=== PATIENT | male | born 1955 | race Caucasian/White ===

== ENCOUNTER 2024-06-18 13:50 | Outpatient (AMB) | payer MEDICARE, SELFPAY ==
--- NOTE | 2024-06-18 14:33 | AM.OFFWIN_ITS ---
Intake Vital Signs 06/18/24 14:38 Height 5 ft 7 in Weight 182 lb BMI 28.5 BP 140/90 H Blood Pressure Location Lt brachial Position Sitting Pulse Oximetry (%) 91 L Oxygen Delivery Method Room Air Intake Visit Reasons: [employer] rash on both arms & chest Intake Note: Patient here for rash on arms and chest that has been present for about 2-3 weeks. Patient Tobacco Use Status: Former Tobacco user Allergies No Known Allergies Allergy (Verified 06/18/24 14:38) Do you need a note to return to daycare/school/sports/work: No HPI HPI Comments History of Present Illness Details This is a 69-year-old male who presented to the walk-in clinic complaining of a pruritic rash to his chest and arms. Patient states this started approximately 2 or 3 weeks ago. He denies any fevers or chills. He denies any chest pain or shortness of breath. He denies any abdominal pain or nausea/vomiting / diarrhea. He reports feeling otherwise well at his baseline. Review of Systems Const All systems reviewed & are unremarkable except as noted in HPI and below Reports no additional complaints Eyes Reports no additional complaints ENT Reports no additional complaints Card Reports no additional complaints Resp Reports no additional complaints GI Reports no additional complaints Reports no additional complaints Musc Reports no additional complaints Skin/Breast Reports system reviewed and no additional complaints, except as documented Neuro Reports no additional complaints Psych Reports no additional complaints Endo Reports no additional complaints Luis/Lymph Reports no additional complaints Aller/Immun Reports no additional complaints Physical Exam Const Other: Vital signs reviewed. Constitutional: Non-toxic appearing. No acute distress. Well-developed and well-nourished. HEENT: Normocephalic and atraumatic. Skin: There are scattered small erythematous excoriated papules throughout his chest and bilateral arms. There is superimposed erythema to bilateral forearms and antecubital fossae with serous weeping that is hot to the touch. Neck: Full and painless range of motion. No cervical lymphadenopathy. Cardio: Regular rate and rhythm. No murmurs, gallops, or rubs. No lower ext remity edema. No JVD. Pulmonary: No respiratory distress. No accessory muscle usage. Clear to auscultation bilaterally without wheezing, crackles, or rhonchi. Gastrointestinal: Soft, nontender, and nondistended in all 4 quadrants. Musculoskeletal: Normal range of motion in joints throughout the body. No deformity or other signs of injury. Neuro: Alert and oriented x4. Cranial nerves 2-12 grossly intact. No focal deficits appreciated. Psych: Normal mood and affect. Assessment & Plan Assessment & Plan (1) Scabies: Code(s): B86 - Scabies (2) Cellulitis of arm: Code(s): L03.119 - Cellulitis of unspecified part of limb Qualifiers: Laterality: unspecified laterality Qualified Code(s): L03.119 - Cellulitis of unspecified part of limb Plan This is a 69-year-old male who presented to the walk-in clinic complaining of a pruritic rash to his chest and arms. On physical examination, patient has scattered small erythematous excoriated papules throughout his chest and bilateral arms with superimposed erythema and drainage of bilateral forearms and antecubital fossae. History and physical most consistent with scabies with superimposed cellulitis of bilateral arms. Patient was given a prescription for permethrin cream with instructions to apply to his entire body, leave on for 8- 14 hours with prior to showering, and applying a 2nd treatment 2 weeks after the 1st treatment. Patient was also given a prescription for p.o. cephalexin 500 mg 4 times daily x7 days to treat superimposed cellulitis. He was also given p.o. hydroxyzine 25 mg 3 times daily as needed for itching. Patient was given instructions to wash his clothes and bed sheets in hot water. He was advised to follow-up here if his symptoms were to persist or worsen. Patient verbalizes understanding and he is in agreement with the plan. Medications: New permethrin 5% Apply to all areas of the body from the neck to soles of feet; leave on for 8 to 14 hours before removing by washing (shower or bath). Apply second treatment 14 days after first treatment. 1 appl topical Q14D 60 grams 0RF cephalexin 500 mg PO QID 28 caps 0RF hydroxyzine HCl 25 mg PO TID PRN 14 tabs 0RF itching Coding Level of Care Code New Pt Level 3 (13077) Diagnoses Scabies B86 Cellulitis of upper extremity, unspecified laterality L03.119 Laterality: unspecified laterality
[2024-06-18 14:38] VITALS: BP 140/90; O2SAT 91; BMI 28.5
== END 2024-06-18 15:44 | disposition home or self-care (01) ==
PROVIDERS: Visit Provider Physician Assistant Medical
DX: B86 Scabies (principal); L03.119 Cellulitis of unspecified part of limb

== ENCOUNTER → 2024-06-18 13:50 | Outpatient (BNVA) | payer MEDICARE, SELFPAY | PROVIDERS: Visit Provider Physician Assistant Medical | DX: L03.113 Cellulitis of right upper limb (principal); L03.114 Cellulitis of left upper limb | CPT/HCPCS: 99202 ==

== ENCOUNTER 2024-11-22 12:55 | Outpatient (AMB) | payer MEDICARE, SELFPAY ==
--- OUTSIDE RECORDS SUMMARY | 2024-11-22 13:13 | XMS_ITS | Encounter Summary ---
Author Organization [employer] [facility] Address [address] [place] [address] [address] [place] [address] Care Team Providers Care Senior Specialist Name Role Phone Unavailable Primary Care Provider Unavailabl e Encounter Details Date Type Department Care Team (Latest Contact Info) Description 09/18/[address] [facility] CONVERSIONS Dental, Provider, DDS Social History Tobacco Use Types Packs/Day Years Used Date Smoking Tobacco: Never Assessed Sex and Gender Information Value Date Recorded Sex Assigned at Male 05/13/2022 10:25 AM EDT Legal Sex Male 10:25 AM EDT Gender Identity Male 05/13/2022 10:25 AM EDT Sexual Orientation Straight 05/13/2022 10 :25 AM EDT documented as of this encounter Plan of Treatment Not on file documented as of this encounter Visit Diagnoses Not on filedocumented in this encounter
--- OUTSIDE RECORDS SUMMARY | 2024-11-22 13:13 | XMS_ITS | Clinical Summary ---
Author Organization [facility] Address [address] [place] [address] Phone Care Team Providers Care Retirement Officer Name Role Phone Rivka Nguyen MD Primary Care Provider [phone] Allergies Active Allergy Reactions Criticality Noted Date Comments Cat Dander Wheezing 08/09/2013 Allergy to cat dander States all ??Animal dander cats are the worst House Dust Wheezing Medium 08/09/2011 House Dust Mite Unknown 06/20/2024 Mite Extract Wheezing Medium 08/09/2011 Other Reaction(s): ASTHMA Pollen Extracts Unknown 12/21/2012 pollen Sertraline Diarrhea,Unknown 09/16/2012 Other Reaction(s): PER PRE-OP ORDERS Medications isosorbide mononitrate (IMDUR) 120 mg 24 hr tablet TAKE 1 TABLET BY MOUTH EVERY DAY 90 tablet 3 05/20/20 24 Active primidone (MYSOLINE) 50 mg tablet Take 1 tablet (50 mg total) by mouth 2 (two) times a day. 04/17/20 24 Active propranolol LA (INDERAL LA) 80 mg 24 hr capsule Si cap PO QD PRN tremors 04/17/20 24 Active Tiadylt ER 240 mg 24 hr capsule Take 1 capsule (240 mg total) by mouth 1 (one) time each day. 05/13/20 24 Active zolpidem (AMBIEN) 10 mg tablet Take 1 tablet (10 mg total) by mouth at bedtime as needed for sleep. 02/23/20 24 Active baclofen (LIORESAL) 10 mg tablet Take 1 tablet (10 mg total) by mouth 3 (three) times a day. 05/03/20 24 Active nitroglycerin (NITROSTAT) 0.[address] 1 tablet (0.4 mg total) under the tongue every 5 (five) minutes if needed for chest pain. 04/28/20 24 Active aspirin 81 mg EC tablet Take 1 tablet (81 mg total) by mouth 1 (one) time each day. Active fluticasone propionate (FLONASE) 50 mcg/actuation nasal spray Administer 1 spray into each nostril every 12 (twelve) hours. Sig - Route: 1 [place] by Nasal route daily. - Nasal Active lancets (ONETOUCH DELICA PLUS LANCET MISC) Sig - Route: Apply 1 Each topically 2 times daily. Active glucose blood test strip Sig: USE TO TEST BLOOD SUGAR TWICE DAILY. Active triamcinolone (KENALOG) 0.1 % cream Apply topically 2 (two) times a day. 30 g 06/24/20 24 025 Active albuterol HFA (PROAIR HFA ; PROVENTIL HFA ; VENTOLIN HFA) 90 mcg/actuation inhaler Inhale 2 puffs by mouth every 4 (four) hours if needed for wheezing or shortness of breath ((EMERGENCY USE ONLY).). 8.5 g 1 06/25/20 24 Active losartan (COZAAR) 25 mg tablet TAKE 1 TABLET BY MOUTH EVERY DAY 90 tablet 3 08/16/19 25 Active rosuvastatin (CRESTOR) 10 mg tablet TAKE 1 TABLET BY MOUTH EVERY DAY 90 tablet 1 08/18/19 25 Active omeprazole (PriLOSEC) [address] capsule TAKE 1 CAPSULE BY MOUTH EVERY DAY 90 capsule 1 08/18/19 25 Active Wixela Inhub 250-50 mcg/dose diskus inhaler INHALE 1 PUFF BY MOUTH 2 (TWO) TIMES A DAY 180 each 08/23/19 25 Active dulaglutide (TRULICITY) 4.5 mg/0.5 mL pen injector injection Inject 0.5 mL (4.5 mg total) under the skin every 7 (seven) days. 6 mL 1 08/26/19 25 Active polyethylene glycol (Golytely) 236-22.74-6.74 -5.86 gram solution Take 4L by mouth once for one dose. May substitue any PEG. Starting at 6PM the night before your procedure drink 1 8oz glasses at your own pace until you complete half of the gallon. Finish 2nd half of the gallon 5 hours before your procedure. 4000 mL 09/10/19 25 Active bisacodyL (DULCOLAX) 5 mg EC tablet Take 2 tablets by mouth right before beginning bowel prep. See instructions provided by the office 2 tablet 09/10/19 25 Active metFORMIN (FORTAMET) 1,000 mg 24 hr tablet Take 1 tablet (1,000 mg total) by mouth 2 (two) times a day with meals. 180 tablet 09/26/19 25 Active hydrOXYzine pamoate (VISTARIL) 25 mg capsule Take 1 capsule (25 mg total) by mouth 3 (three) times a day if needed for itching. 270 capsule 10/12/19 25 Active Jardiance 25 mg tablet TAKE 1 TABLET BY MOUTH EVERY DAY 90 tablet 1 11/02/19 25 Active Jardiance 25 mg tablet Take 1 tablet (25 mg total) by mouth 1 (one) time each day. 05/07/20 24 025 Discontinued Active Problems Problem Noted Date Diagnosed Date Lumbar radiculitis 08/26/2024 Overview (08/26/2024): Dr. Ty SCC (squamous cell carcinoma), arm 04/05/2024 Overview (05/24/2024): 04/06 Stefano ulcer, chronic 09/09/2022 Large hiatal hernia 09/09/2022 Long-segment Grewal's esophagus 09/09/2022 Tubular adenoma of colon 09/09/2022 COVID-19 virus infection 07/26/2021 Overview (05/24/2024): 1.7.22 DM (diabetes mellitus), type 2 with renal complications (CMS/HCC V24, CMS/HCC V28) 04/15/2020 Microalbuminuria 04/15/2020 History of basal cell carcinoma (BCC) of skin Overview (05/24/2024): 12/30left cheek Porokeratosis 09/17/2018 Overview (05/24/2024): Porokeratosis 09/29 right calf (excoriated) Diabetic autonomic neuropath y associated with type 2 diabetes mellitus ([facility] V24, [facility] V28) 09/08/2015 Lumbar spinal stenosis 10/05/2014 Type 2 diabetes mellitus wit h diabetic cataract ([facility] V24, [facility] V28) 10/05/2014 Iron deficiency anemia 11/09/2013 CAD (coronary artery disease) 04/22/2013 Overview (05/24/2024): cardiac cath February 2013 revealing 70% proximal RCA, Mid RCA 100% stenosis with collaterals from distal circumflex to RPDA and 75% first OM stenosis, normal EF. Managed medically as OM too small for PCI. exercise stress test 2015, exercised to 7 MET workload, 85% of the maximum predicted heart rate, nuclear imaging revealing small in size severe in intensity defect in the mid to basal inferior wall that was fixed unchanged from prior nuclear imaging in 2012. Last Assessment & Plan: Patient Denies any anginal or congestive symptoms. He will continue his current treatment plan with calcium channel maría, long-acting nitrates, aspirin, statin. He is encouraged to increase his exercise for general cardiovascular health. Assessment & Plan (08/19/2024 3:07 PM EST): Patient denies any anginal symptoms or symptoms reminiscent to those prior to his cardiac catheterization. He will continue on aspirin, isosorbide, and statin. Instructed to call 911 or go to the emergency room should the patient begin to experience chest pain or pressure lasting greater than 10 minutes does not resolve with rest. Orders: Transthoracic echocardiogram (TTE) complete with PRN contrast, bubble, strain, and 3D order panel; Future perflutren lipid microsphere (DEFINITY) 1.3 mL in sodium chloride 0.9% 8.7 mL injection Familial tremor 06/10/2012 Asthma 03/05/2012 DM (diabetes mellitus), type 2 with peripheral vascular complications ([facility] V24, [facility] V28) 03/05/2012 Erectile dysfunction 03/05/2012 GERD (gastroesophageal reflux disease) 2 HTN (hypertension) 03/05/2012 Assessment & Plan (08/19/2024 3:07 PM EST): Acceptable during today's exam with a reading of 130/64. I have made no changes to his antihypertensive medications. He will continue on his current dose of losartan. Educated on the importance of diet lifestyle to help further assist in reducing blood pressure. The patient was encouraged to follow low-salt low-fat diet, make purposeful strides towards weight loss, and engage in routine aerobic exercise as tolerated. Hyperlipidemia 03/05/2012 Assessment & Plan (08/19/2024 3:07 PM EST): At this time he will continue on his current dose of statin therapy and be mindful of his dietary fat intake. The patient does have an appointment to follow-up with his PCP in the next few weeks and blood work has been ordered which he plans on having drawn tomorrow. Goal LDL less than 70 in the setting of coronary artery disease however ideally closer to 55. Resolved Problems Problem Noted Date Diagnosed Date Resolved Date Bilateral inguinal hernia 10/13/2014 Encounters Date Type Department Care Team Description 11/19/2024 Nurse Triage Adult Medicine [address] [phone] Rivka Nguyen MD Cough; Shortness of Breath 10/29/2024 11:00 AM EDT Ancillary Procedure [facility] [address] [place] [address] Coronary artery disease involving chickahominy indians-eastern division coronary artery of chick[place]om[place] indians[place] heart without angina pectoris 09/16/2024 2:28 PM EST Anesthesia Event [facility] [address] [place] [phone] Ismael Brito MD 09/16/2024 12:27 PM EST - 09/16/2024 11:59 PM EST Hospital Encounter [facility] [address] [place] [phone] Kade Francois MD Steele, Matthew G, CRNA Iron deficiency anemia, unspecified iron deficiency anemia type Discharge Disposition: Home or Self Care 09/10/2024 1:00 PM EST Office Visit Gastroenterology [facility] 175 [facility] [address] [phone] Nan Jenkins NP Iron deficiency anemia, unspecified iron deficiency anemia type (Primary Dx); Grewal esophagus without dysplasia; Large hiatal hernia; History of adenomatous polyp of colon 09/10/2024 Telephone Gastroenterology [facility] 175 [facility] 175 [facility] [address] [place] [address] Nan Jenkins NP 09/10/2024 Telephone Adult Medicine [address] [phone] Rivka Nguyen MD fax 09/07/2024 3:00 PM EST Office Visit [facility] [address] [place] [phone] Bib Sharp MD Iron deficiency anemia, unspecified iron deficiency anemia type 08/26/2024 2:15 PM EST Office Visit Adult Medicine [address] [phone] Kym Newman PA Type 2 diabetes mellitus with chronic kidney disease, without long-term current use of insulin, unspecified CKD stage ([facility] V24, [facility] V28) (Primary Dx); Other hyperlipidemia; Lumbar radiculitis; Type 2 diabetes mellitus with diabetic cataract, without long-term current use of insulin ([facility] V24, [facility] V28); Microalbuminuria; Long-segment Grewal's esophagus; Iron deficiency anemia, unspecified iron deficiency anemia type; Large hiatal hernia; Gastroesophageal reflux disease, unspecified whether esophagitis present; Familial tremor; DM (diabetes mellitus), type 2 with peripheral vascular complications (CMS/HCC V24, CMS/[facility] V28); Diabetic autonomic neuropathy associated with type 2 diabetes mellitus ([facility] V24, CMS/[facility] V28); Coronary artery disease involving chickahominy indians-eastern division coronary artery of chickahominy indians-eastern division heart without angina pectoris; History of basal cell carcinoma (BCC) of skin; Squamous cell carcinoma of upper extremity, unspecified laterality; Moderate persistent asthma without complication from Last 3 Months Immunizations Name Administration Dates Next Due Influenza Quadravalent, MDCK , 0.5ml, with preservative (Flucelvax) 6mo and older 04/17/2017 Influenza trivalent, 0.5mL ( Fluad) 65yo and older 03/12/2024,03/21/2023,03/25/2022,03/26,04/19/2020,04/02/2019 Influenza trivalent, 0.5mL, preservative free (Fluarix; FluLaval; Fluzone) ages 6mo and older (Afluria) 3 years and older 04/02/2018 Influenza trivalent, with pr eservative (Fluzone; Afluria) 6mo and older 06/21/2016,04/11/2015,05/24/2014,04/22,04/02/2012 Moderna Covid-19 Bivalent, O riginal + Ba.1 (Non-US Tradename Spikevax Bivalent) 08/30/2022,03/29/2022 Moderna SARS-CoV-2 COVID-19, mRNA, LNP-S, preservative free 11/24/2021,06/20/2021 Pfizer (ages 12 & older) Biv alent, COVID-19 03/12/2024 Pneumococcal conjugate 13 va lent (Prevnar 13, PCV13) 2mo and older 11/30/2018 Pneumococcal polysaccharide 23 valent (Pneumovax 23) 2yo and older 04/19/2020,03/04/2012 Respiratory syncytial virus (RSV), unspecified 10/27/2023 SARS-COV-2 (COVID-19) Vaccin e, Unspecified 10/27/2023,05/09/2023 Td Tetanus diptheria (Tdvax) 7yo and older 03/25/2022 Tdap Tetanus diptheria acell ular pertussis (Boostrix; Adacel) 7yo and older 03/04/2012 Zoster Live 06/08/2014 Zoster recombinant (Shingrix ) 19yo and older 03/21/2023,08/30/2022 Surgical History Surgery Date Site/Laterality Comments CATARACT EXTRACTION bilateral HERNIA REPAIR Bilateral inguinal COLONOSCOPY 09/17/12 adenoma; repeat in 5 yrs COLONOSCOPY W/ POLYPECTOMY 11/19/2017 : adenoma; repeat in 5 yrs Medical History Medical History Date Comments Esophageal reflux Erectile dysfunction 03/05/2012 Lumbar spinal stenosis 10/05/2014 Type 2 diabetes mellitus wit h diabetic cataract ([facility] V24, [facility] V28) 10/05/2014 Bilateral inguinal hernia 10/13/2014 Diabetic autonomic neuropath y associated with type 2 diabetes mellitus ([facility] V24, [facility] V28) 09/08/2015 History of actinic keratoses Microalbuminuria 04/15/2020 DM (diabetes mellitus), type 2 with renal complications ([facility] V24, [facility] V28) 04/15/2020 COVID-19 virus infection 07/26/2021 1.7.22 SCC (squamous cell carcinoma), arm 04/05/202404/06 History of basal cell carcin marlo (BCC) of skin 12/22/201812/30left cheek Asthma 03/05/2012 CAD (coronary artery disease) 04/22/2013 ca rdiac cath February 2013 revealing 70% proximal RCA, Mid RCA 100% stenosis with collaterals from distal circumflex to RPDA and 75% first OM stenosis, normal EF. Managed medically as OM too small for PCI. ?? exercise stress test 2015, exercised to 7 MET workload, 85% of the maximum predicted heart rate, nuclear imaging revealing small in size severe in intensity defect in the mid to basal i DM (diabetes mellitus), type 2 with peripheral vascular complications ([facility] V24, [facility] V28) 03/05/2012 Familial tremor 06/10/2012 GERD (gastroesophageal reflux disease) 2 HTN (hypertension) 03/05/2012 Hyperlipidemia 03/05/2012 Iron deficiency anemia 11/09/2013 Long-segment Grewal's esophagus 09/09/2022 Tubular adenoma of colon 09/09/2022 CAD (coronary artery disease) Family History Medical History Relation Name Comments Other: HIV Brother COPD Father Heart attack Mother DM, CHF Heart attack Sister 1 cocaine abuse Colon cancer Neg Hx Prostate cancer Neg Hx Relation Name Status Comments Brother Father (Age 70's) Mother (Age 70's) Sister 1 (Age 42) Sister 2 Alive Social History Tobacco Use Types Packs/Day Years Used Date Smoking Tobacco: Former Cigarettes Q uit: 07/14/1968 Smokeless Tobacco: Never Tobacco Cessation:Counseling Given: Not Answered Alcohol Use Standard Drinks/Week Comments Yes 6 (1 standard drink = 0.6 oz pur e alcohol) weekend Housing Instability Answer Date Recorde d Are you worried that in the next 2 months you may not have stable housing? No 07/01/2024 Food Access & Nutrition Answer Date Rec orded Do you have access to a vari ety of food including fruits and vegetables? Yes 07/01/2024 Access to Healthcare Answer Date Record ed Within the last 3 months, ho w many times did you visit the emergency department for your medical care? 1 07/01/2024 Health Literacy Answer Date Recorded How often do you need to hav e someone help you when you read instructions, pamphlets, or other written material from your doctor or pharmacy? Never 07/01/2024 Caregiver: How often do you need to have someone help you when you read instructions, pamphlets, or other written material from your doctor or pharmacy? Not on file 07/01/2024 Financial Risk Answer Date Recorded How hard is it for you to pa y for the very basics like food, housing, medical care, and air conditioning / heating? Not very hard 07/01/2024 Transportation Answer Date Recorded Has the lack of transportati on kept you from meetings, work, or from getting things needed for daily living? No Has the lack of transportati on kept you from medical appointments or from getting medications? No 07/01/2024 Social Isolation Answer Date Recorded How often do you feel lonely or isolated from th ose around you? Never 07/01/2024 Food Risk Answer Date Recorded Within the past 12 months we worried whether our food would run out before we got money to buy more. Never true 07/01/2024 Within the past 12 months th e food we bought just didn't last and we didn't have money to get more. Never true 07/01/2024 Dependent Care Answer Date Recorded Do you need help finding or paying for care for your loved ones. For example, child day care teacher or elderly care for an older adult? No 07/01/2024 Education Answer Date Recorded Do you think completing more education or training, like finishing a GED, going to college, or learning a trade, would be helpful for you? No 07/01/2024 Employment and Income Answer Date Recor ded During the last four weeks, have you been actively looking for work? No 07/01/2024 Living Situation Answer Date Recorded What is your living situation? 1 09/01/2023 Interpersonal Safety Answer Date Record ed Physical Abuse 09/16/2024 Verbal Abuse 09/16/2024 Sex and Gender Information Value Date Recorded Sex Assigned at Male 09/15/2024 4:23 PM EST Legal Sex Male 4:05 PM EST Gender Identity Male 09/15/2024 4:23 PM EST Sexual Orientation Straight 09/16/2024 12 :21 PM EST Obstetrics History Last Filed Vital Signs Vital Sign Reading Time Taken Comments Blood Pressure 138/82 10/29/2024 11:10 AM EDT Pulse 72 09/16/2024 3:16 PM EST Temperature 36.4 ??C (97.6 ??F) 09/16/2024 2:56 PM ES T Respiratory Rate 18 09/16/2024 3:16 PM EST Oxygen Saturation 98% 09/16/2024 3:16 PM EST Inhaled Oxygen Concentration - - Weight 77.1 kg (170 lb) 10/29/2024 11:10 AM EDT Height 170.2 cm (5' 7 ) 10/29/2024 11:10 AM EDT Body Mass Index 26.63 10/29/2024 11:10 AM EDT Plan of Treatment Upcoming Encounters Date Type Department Care Team (Late st Contact Info) Description 12/08/2024 2:45 PM EDT Office Visit Adult Medicine [facility] [address] [place] [phone] Rivka Nguyen MD [address] [place] [phone] Health Maintenance Due Date Last Done Comments Medicare Annual Wellness Visit 04/17/2024 04/17/2023 COVID-19 Vaccine ( season) 2024 03/12/2024, 10/27/2023, 05/09/2023, Additional history exists Diabetes: Annual Foot Exam 12/14/2024 12/15/2023, Diabetes: Blood Sugar Control Test (HGBA1C) 02/22/2025 08/25/2024, 04/15/2024, 04/15/2024, Additional history exists Diabetes: Annual Retina Eye Exam 03/19/2025 03/19/2024, 03/19/2024 Social Influencers of Health Screening 07/01/2025 07/01/2024 Depression Screening 07/22/2025 07/22/2024, 04/17/20 Diabetes: Annual Urine Albumin-Creatinine Ratio (uACR) 08/25/2025 08/25/2024, 08/08/2023, 08/08/2023 Diabetes: Annual GFR (Glomerular Filtration Rate) 08/25/2025 08/25/2024, 06/24/2024, 06/23/2024, Additional history exists Hypertension/CHF/CAD Annual BMP Blood Test 08/25/2025 08/25/2024, 06/24/2024, 06/23/2024, Additional history exists Falls Risk Assessment 09/16/2025 09/16/2024 , 08/18/2023, 08/18/2023 Colorectal Cancer Screening: Colonoscopy 09/17/2027 09/16/2024, 09/04/2022, 09/04/2022 Cholesterol Screening (Lipid Panel) 08/25/2029 08/25/2024, 04/15/2024, 04/15/2024 DTaP,Tdap,and Td Vaccines (3 - Td or Tdap) 03/25/2032 03/25/2022, 03/04/2012 Abdominal Aortic Aneurysm (AAA) Screen Completed 12/31/2018, 12/31/2018 Pneumococcal Vaccine: 50+ Years Completed 04/19/2020, 11/30/2018, 03/04/2012 Zoster Vaccines Completed 03/21/2023, 08/14, 06/08/2014 RSV Immunization Adult Patients Discontinued 10/27/2023 RSV Immunization Patients Under 20 months Aged Out 10/27/2023 No longer eligible based on patient's age to complete this topic Influenza Vaccine Completed 03/12/2024, , 03/25/2022, Additional history exists Hepatitis C Screening Completed 06/22/2024 , 01/18/2021, 01/18/2021 HIB Vaccines Aged Out No longer eligi ble based on patient's age to complete this topic HPV Vaccines Aged Out No longer eligi ble based on patient's age to complete this topic Hepatitis A Vaccines Aged Out No long er eligible based on patient's age to complete this topic Hepatitis B Vaccines Aged Out No long er eligible based on patient's age to complete this topic IPV Vaccines Aged Out No longer eligi ble based on patient's age to complete this topic MMR Vaccines Aged Out No longer eligi ble based on patient's age to complete this topic Meningococcal ACWY Vaccine Aged Out N o longer eligible based on patient's age to complete this topic Meningococcal B Vaccine Aged Out No l onger eligible based on patient's age to complete this topic Varicella Vaccines Aged Out No longer eligible based on patient's age to complete this topic Procedures Procedure Name Priority Date/Time Associated Diagnosis Comments TRANSTHORACIC ECHOCARDIOGRAM (TTE) COMPLETE Routine 10/29/2024 11:46 AM EDT Coronary artery disease involving chickahominy indians-eastern division coronary artery of chickahom[place] indians-eastern division heart without angina pectoris EGD Routine 09/16/2024 2:55 PM EST Iron deficiency anemia, unspecified iron deficiency anemia type COLONOSCOPY Routine 09/16/2024 2:55 PM EST Iron deficiency anemia, unspecified iron deficiency anemia type TISSUE EXAM Routine 09/16/2024 2:42 PM EST Iron deficiency anemia, unspecified iron deficiency anemia type CBC WITH AUTO DIFFERENTIAL Routine 09/07/2024 3:37 PM EST Iron deficiency anemia, unspecified iron deficiency anemia type RETICULOCYTE COUNT Routine 09/07/2024 3: 37 PM EST Iron deficiency anemia, unspecified iron deficiency anemia type VITAMIN B12 AND FOLATE Routine 3:37 PM EST Iron deficiency anemia, unspecified iron deficiency anemia type IRON AND TIBC Routine 09/07/2024 3:37 PM EST Iron deficiency anemia, unspecified iron deficiency anemia type FERRITIN Routine 09/07/2024 3:37 PM EST Iron deficiency anemia, unspecified iron deficiency anemia type CBC AND DIFFERENTIAL Routine 09/07/2024 3:37 PM EST Iron deficiency anemia, unspecified iron deficiency anemia type IRON AND TIBC Routine 08/25/2024 1:58 PM EST Abnormal red cell volume FERRITIN Routine 08/25/2024 1:58 PM EST Abnormal red cell volume LIPID PANEL WITH REFLEX TO DIRECT LDL Routine 08/25/2024 1:58 PM EST Mixed hyperlipidemia COMPREHENSIVE METABOLIC PANEL Routine 08/25/2024 1:58 PM EST Excoriation (skin-picking) disorder Type 2 diabetes mellitus with diabetic microalbuminuria, without long-term current use of insulin (CMS/[facility] V24, CMS/[facility] V28) HEMOGLOBIN A1C Routine 08/25/2024 1:58 PM EST Type 2 diabetes mellitus with diabetic microalbuminuria, without long-term current use of insulin (CMS/HCC V24, CMS/HCC V28) MICROALBUMIN CREATININE URINE RATIO Routine 08/25/2024 1:58 PM EST Type 2 diabetes mellitus with diabetic microalbuminuria, without long-term current use of insulin (CMS/[facility] V24, CMS/HCC V28) PROSTATE SPECIFIC ANTIGEN SCREEN Routine 08/25/2024 1:58 PM EST Prostate cancer screening HEPATITIS C ANTIBODY Add-On 06/22/2024 1:16 PM EST DIABETES EYE EXAM Routine 03/19/2024 DIABETES FOOT EXAM Routine 12/15/2023 FALLS RISK ASSESSMENT Routine 08/18/2023 US ABDOMINAL AORTA REAL TIME SCREEN STUDY AAA Routine 12/31/2018 9:20 AM EDT Encounter for screening for cardiovascular disorders from Last 3 Months or Most Recently Relevant to Health Maintenance Results * (ABNORMAL) TRANSTHORACIC ECHOCARDIOGRAM (TTE) COMPLETE (10/29/2024 11:46 AM EDT) Left Atrium Minor Burnside 5.6 cm CV PACS Left Atrium Major Burnside 5.1 cm CV PACS LA Area Sys (A2C) 16 cm2 CV PACS LA Area Sys (A4C) 16 cm2 CV PACS LA Volume (BP) 40 mL CV PACS RA Area 13.5 cm2 CV PACS RA 2D Volume 28 mL CV PACS AV Mean Gradient 4 mmHg CV PACS Ao VTI 28.2 cm CV PACS AV Peak Baram 1.4 m/s CV PACS AV Peak Gradient 7 mmHg CV PACS AV Area Continuity Equation 3.5 cm2 CV PACS AV Area Peak Velocity 3.2 cm2 CV PACS Aortic Sinus Valsalva 3.6 cm CV PACS Ascending Aorta 3.7 cm CV PACS IVC Proximal 1.5 cm CV PACS IVSD 1.1(A) 0.6 - 1.0 cm CV PACS LVIDD 4.4 4.2 - 5.8 cm CV PACS LVIDS 2.9 2.5 - 4.0 cm CV PACS LVOT Diameter 2.3 cm CV PACS LVOT Mean Grad 2 mmHg CV PACS LVOT Peak VTI 23.6 cm CV PACS LVOT Mean Abram 0.7 m/s CV PACS LVOT Peak Abram 1.1 m/s CV PACS LVOT Peak Gradient 4 mmHg CV PACS LVPWD 1.1(A) 0.6 - 1.0 cm CV PACS MV E' Tissue Velocity Lateral 8 cm/s CV PACS MV E' Tissue Velocity Septal 8 cm/s CV PACS LVOT Area 4.2 cm2 CV PACS LVOT Stroke Volume 98 mL CV PACS MV Deceleration [place] 5.6 m/s2 CV PACS E Wave Deceleration Time 202 119 - 242 ms CV PACS MV PHT 59 ms CV PACS MV Peak A Abram 1.25 m/s CV PACS MV Peak E Abram 1.13 m/s CV PACS MV Area PHT 3.7 cm2 CV PACS PV Acceleration Time 79 ms CV PACS PV Peak Velocity 0.8 m/s CV PACS PV Peak Gradient 2 mmHg CV PACS RV Diastolic Basal Dimension 3.5 2.5 - 4.1 cm CV PACS TAPSE 28 mm CV PACS TR Peak Velocity 2.07 m/s CV PACS TR Peak Gradient 17 mmHg CV PACS E/E' Ratio Septal 14 CV PACS E/E' Ratio Averaged 14 CV PACS LVOT Stroke Index 52 mL/m2 CV PACS Relative Wall Thickness ratio 0.50 CV PACS LVOT:AV VTI Index 0.84 CV PACS FS 34 % CV PACS LV Mass 2D 169 g CV PACS Ascending Aorta Index 1.96 cm/m2 CV PACS LVOT flow 291 mL/s CV PACS RA 2D Volume Index 15 mL/m2 CV PACS PHU Index (VTI) 1.84 cm2/m2 CV PACS PHU Index (Pk Abram) 1.69 cm2/m2 CV PACS LVIDD Index 2.33 cm/m2 CV PACS LVIDS Index 1.53 cm/m2 CV PACS AV Velocity Ratio 0.79 CV PACS E/A Ratio 0.9 CV PACS E/E' Ratio Lateral 14 CV PACS LA Volume Index (BP) 21 mL/m2 CV PACS LV Mass Index 2D 89 g/m2 CV PACS BSA 1.91 m2 CV PACS Right Ventricular Peak Systolic Pressure 20 mmHg CV PACS Est. RA Pressure 3 mmHg CV PACS Anatomical Region Laterality Modality Ultrasound Narrative 10/29/2024 4:56 PM EDT ?Left ventricle cavity size is normal. There is mild hypertrophy. Systolic function is normal with an ejection fraction of 55-60%. No definitive wall motion abnormality. A small area of mid inferoseptum has wall motion abnormality with unclear significance. ?Right ventricle cavity is normal. Right ventricular systolic function is normal. ?Mild aortic valve regurgitation. ?The right ventricular systolic pressure is normal. The RVSP is estimated at 20 mmHg. ?Compared to previous study of 03/28/2020, there are no significant changes. Left Ventricle Left ventricle cavity size is normal. There is mild hypertrophy. Systolic function is normal with an ejection fraction of 55-60%. No definitive wall motion abnormality. A small area of mid inferoseptum has wall motion abnormality with unclear significance. Indeterminate diastolic function. Right Ventricle Right ventricle cavity appears normal. Systolic function is normal. Left Atrium Left atrium cavity size is normal. Right Atrium Right atrium cavity is normal. Mitral Valve The leaflets are mildly thickened. There is mild annular calcification. There is trace regurgitation. There is no evidence of mitral valve stenosis. Tricuspid Valve Tricuspid valve structure is normal. There is mild regurgitation. There is no evidence of tricuspid valve stenosis. The right ventricular systolic pressure is normal. The RVSP is estimated at 20 mmHg. Aortic Valve The aortic valve is trileaflet. The leaflets are mildly thickened. There is mild regurgitation. There is no evidence of aortic valve stenosis. Pulmonic Valve The pulmonic valve was not well visualized. No significant pulmonic valve regurgitation. There is no evidence of pulmonic valve stenosis. Ascending Aorta The Sinus of Valsalva is (3.6 cm). The ascending aorta is (3.7 cm). Pericardium Pericardium appears normal. Study Details Overall the study quality was adequate. us Tika Murrieta NP CV ECHO PROCEDURES Fin al Result * COLONOSCOPY Anesthesia - MAC; [facility] (09/16/2024 2:55 PM EST) Anatomical Region Laterality Modality Endoscopy 09/16/2024 2:30 PM EST Impressions 09/16/2024 2:59 PM EST - Preparation of the colon was poor. ? - Stool in the entire examined colon. ? - No specimens collected. Recommendation: ?- Patient has a contact number available for ? emergencies. The signs and symptoms of potential ? delayed complications were discussed with the patient. ? Return to normal activities tomorrow. Written ? discharge instructions were provided to the patient. ? - Resume previous diet. ? - Continue present medications. ? - Await pathology results. ? - Repeat colonoscopy at the next available appointment ? because the bowel preparation was suboptimal. Narrative 09/16/2024 2:59 PM EST [facility] GI Patient Name: Jesus Calix Procedure Date: 09/16/2024 2:30 PM Date of : 1955 Age: 69 Gender: Male Note Status: Finalized Attending MD: Kade Francois MD, Procedure Date No Time: 09/16/2024 Procedure: ? Colonoscopy Indications: ? Unexplained iron deficiency anemia Providers: ? Kade Francois MD Referring MD: ?Kade Francois MD Medicines: ? Monitored Anesthesia Care Complications: ? No immediate complications. Estimated blood loss: None. Estimated Blood Loss: ? Estimated blood loss: none. Procedure: ? Pre-Anesthesia Assessment: ? - Prior to the procedure, a History and Physical was ? performed, and patient medications and allergies were ? reviewed. The patient is competent. The risks and ? benefits of the procedure and the sedation options and ? risks were discussed with the patient. All questions ? were answered and informed consent was obtained. ? Patient identification and proposed procedure were ? verified by the physician, the nurse, the cis coordinator ? and the avionic technician in the pre-procedure area in the ? endoscopy suite. Mental Status Examination: alert and ? oriented. Airway Examination: normal oropharyngeal ? airway and neck mobility. Respiratory Examination: ? clear to auscultation. CV Examination: normal. ? Prophylactic Antibiotics: The patient does not require ? prophylactic antibiotics. Prior Anticoagulants: The ? patient has taken no anticoagulant or antiplatelet ? agents. ASA Grade Assessment: III - A patient with ? severe systemic disease. After reviewing the risks and ? benefits, the patient was deemed in satisfactory ? condition to undergo the procedure. The anesthesia ? plan was to use monitored anesthesia care (MAC). ? Immediately prior to administration of medications, ? the patient was re-assessed for adequacy to receive ? sedatives. The heart rate, respiratory rate, oxygen ? saturations, blood pressure, adequacy of pulmonary ? ventilation, and response to care were monitored ? throughout the procedure. The physical status of the ? patient was re-assessed after the procedure. ? After I obtained informed consent, the scope was ? passed under direct vision. Throughout the procedure, ? the patient's blood pressure, pulse, and oxygen ? saturations were monitored continuously.The ? Colonoscope was introduced through the anus with the ? intention of advancing to the cecum. The scope was ? advanced to the ascending colon before the procedure ? was aborted. Medications were given. The colonoscopy ? was performed without difficulty. The patient ? tolerated the procedure well. The quality of the bowel ? preparation was poor. Findings: ?The perianal and digital rectal examinations were ? normal. ? Copious quantities of semi-liquid semi-solid stool was ? found in the entire colon, precluding visualization. Procedure Code(s): ? --- Professional --- ? 03337, 53, Colonoscopy, flexible; diagnostic, ? including collection of specimen(s) by brushing or ? washing, when performed (separate procedure) Diagnosis Code(s): ? --- Professional --- ? D50.9, Iron deficiency anemia, unspecified CPT copyright 2020 [employer]. All rights reserved. The codes documented in this report are preliminary and upon preschool teacher review may be revised to meet current compliance requirements. Kade Francois MD 09/16/2024 2:59:30 PM This report has been signed electronically.Kade Francois MD Number of Addenda: 0 Note Initiated On: 09/16/2024 2:30 PM Scope In: 2:34:28 PM Scope Out: 2:39:46 PM ? Endoscopy Department at [facility] - [address] [place] [address], ? [place] [address] Procedure Note Kade Francois MD - 09/16/2024 [facility] GI Patient Name: Jesus Calix Procedure Date: 09/16/2024 2:30 PM Date of : 1955 Age: 69 Gender: Male Note Status: Finalized Attending MD: Kade Francois MD, Procedure Date No Time: 09/16/2024 Procedure: Colonoscopy Indications: Unexplained iron deficiency anemia Providers: Kade Francois MD Referring MD: Kade Francois MD Medicines: Monitored Anesthesia Care Complications: No immediate complications. Estimated blood loss:None. Estimated Blood Loss: Estimated blood loss: none. Procedure: Pre-Anesthesia Assessment: - Prior to the procedure, a History and Physicalwas performed, and patient medications and allergieswere reviewed. The patient is competent. The risks and benefits of the procedure and the sedation optionsand risks were discussed with the patient. Allquestions were answered and informed consent was obtained. Patient identification and proposed procedure were verified by the physician, the nurse, theanesthetist and the avionic technician in the pre-procedure area in the endoscopy suite. Mental Status Examination: alertand oriented. Airway Examination: normal oropharyngeal airway and neck mobility. Respiratory Examination: clear to auscultation. CV Examination: normal. Prophylactic Antibiotics: The patient does notrequire prophylactic antibiotics. Prior Anticoagulants: The patient has taken no anticoagulant or antiplatelet agents. ASA Grade Assessment: III - A patient with severe systemic disease. After reviewing the risksand benefits, the patient was deemed in satisfactory condition to undergo the procedure. The anesthesia plan was to use monitored anesthesia care (MAC). Immediately prior to administration of medications, the patient was re-assessed for adequacy to receive sedatives. The heart rate, respiratory rate, oxygen saturations, blood pressure, adequacy of pulmonary ventilation, and response to care were monitored throughout the procedure. The physical status ofthe patient was re-assessed after the procedure. After I obtained informed consent, the scope was passed under direct vision. Throughout theprocedure, the patient's blood pressure, pulse, and oxygen saturations were monitored continuously.The Colonoscope was introduced through the anus withthe intention of advancing to the cecum. The scope was advanced to the ascending colon before theprocedure was aborted. Medications were given. Thecolonoscopy was performed without difficulty. The patient tolerated the procedure well. The quality of thebowel preparation was poor. Findings: The perianal and digital rectal examinations were normal. Copious quantities of semi-liquid semi-solid stoolwas found in the entire colon, precludingvisualization. Procedure Code(s): --- Professional --- 89850, 53, Colonoscopy, flexible; diagnostic, including collection of specimen(s) by brushing or washing, when performed (separate procedure) Diagnosis Code(s): --- Professional --- D50.9, Iron deficiency anemia, unspecified CPT copyright 2020 [employer]. All rights reserved. The codes documented in this report are preliminary and upon preschool teacher reviewmay be revised to meet current compliance requirements. Kade Francois MD 09/16/2024 2:59:30 PM This report has been signed electronically.Kade Francois MD Number of Addenda: 0 Note Initiated On: 09/16/2024 2:30 PM Scope In: 2:34:28 PM Scope Out: 2:39:46 PM Endoscopy Department at [facility] - [address] [place] [id number] IMPRESSION: - Preparation of the colon was poor. - Stool in the entire examined colon. - No specimens collected. Recommendation: - Patient has a contact number available for emergencies. The signs and symptoms of potential delayed complications were discussed with thepatient. Return to normal activities tomorrow. Written discharge instructions were provided to thepatient. - Resume previous diet. - Continue present medications. - Await pathology results. - Repeat colonoscopy at the next availableappointment because the bowel preparation was suboptimal. Kade Francois MD GI~PROCEDURE ORDERABLES Fin al Result * EGD Anesthesia - MAC; [facility] (09/16/2024 2:55 PM EST) Anatomical Region Laterality Modality Endoscopy 09/16/2024 2:17 PM EST Impressions 09/16/2024 2:57 PM EST - Normal examined duodenum. Biopsied. ? - Medium-sized hiatal hernia. ? 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 Biopsied. Recommendation: ?- Await pathology results. ? - Return to GI clinic. Narrative 09/16/2024 2:57 PM EST [facility] GI Patient Name: Jesus Calix Procedure Date: 09/16/2024 2:17 PM Date of : 1955 Age: 69 Gender: Male Note Status: Finalized Attending MD: Kade Francois MD, Procedure Date No Time: 09/16/2024 Procedure: ? Upper GI endoscopy Indications: ? Suspected upper gastrointestinal bleeding in patient ? with unexplained iron deficiency anemia, Grewal's ? esophagus, Follow-up of Grewal's esophagus Providers: ? Kade Francois MD Referring MD: ?Kade Francois MD Medicines: ? Monitored Anesthesia Care Complications: ? No immediate complications. Estimated blood loss: ? Minimal. Estimated Blood Loss: ? Estimated blood loss was minimal. Procedure: ? Pre-Anesthesia Assessment: ? - Prior to the procedure, a History and Physical was ? performed, and patient medications and allergies were ? reviewed. The patient is competent. The risks and ? benefits of the procedure and the sedation options and ? risks were discussed with the patient. All questions ? were answered and informed consent was obtained. ? Patient identification and proposed procedure were ? verified by the physician, the nurse, the cis coordinator ? and the avionic technician in the pre-procedure area in the ? endoscopy suite. Mental Status Examination: alert and ? oriented. Airway Examination: normal oropharyngeal ? airway and neck mobility. Respiratory Examination: ? clear to auscultation. CV Examination: normal. ? Prophylactic Antibiotics: The patient does not require ? prophylactic antibiotics. Prior Anticoagulants: The ? patient has taken no anticoagulant or antiplatelet ? agents. ASA Grade Assessment: III - A patient with ? severe systemic disease. After reviewing the risks and ? benefits, the patient was deemed in satisfactory ? condition to undergo the procedure. The anesthesia ? plan was to use monitored anesthesia care (MAC). ? Immediately prior to administration of medications, ? the patient was re-assessed for adequacy to receive ? sedatives. The heart rate, respiratory rate, oxygen ? saturations, blood pressure, adequacy of pulmonary ? ventilation, and response to care were monitored ? throughout the procedure. The physical status of the ? patient was re-assessed after the procedure. ? After obtaining informed consent, the endoscope was ? passed under direct vision. Throughout the procedure, ? the patient's blood pressure, pulse, and oxygen ? saturations were monitored continuously.The Olympus ? Gastroscope was introduced through the mouth, and ? advanced to the second part of duodenum. The upper GI ? endoscopy was accomplished without difficulty. The ? patient tolerated the procedure well. Findings: ?The examined duodenum was normal. Biopsies were taken ? with a cold forceps for histology. Estimated blood ? loss was minimal. ? A medium-sized hiatal hernia was found. The proximal ? extent of the gastric folds (end of tubular esophagus) ? was 35 cm from the incisors. The hiatal narrowing was ? 40 cm from the incisors. ? The esophagus and gastroesophageal junction were ? examined with white light and narrow band imaging ? (NBI). There were esophageal mucosal changes secondary ? to established long-segment Grewal's disease. These ? changes involved the mucosa at the upper extent of the ? gastric folds (35 cm from the incisors) extending to ? the Z-line (25 cm from the incisors). [place]- colored ? mucosa was present. The maximum longitudinal extent of ? these esophageal mucosal changes was 10 cm in length. ? Mucosa was biopsied with a cold forceps for histology. ? A total of 2 specimen bottles were sent to pathology. ? Estimated blood loss was minimal. Procedure Code(s): ? --- Professional --- ? 65492, Esophagogastroduodenoscopy, flexible, ? transoral; with biopsy, single or multiple Diagnosis Code(s): ? --- Professional --- ? K22.70, Grewal's esophagus without dysplasia ? D50.9, Iron deficiency anemia, unspecified CPT copyright 2020 [employer]. All rights reserved. The codes documented in this report are preliminary and upon preschool teacher review may be revised to meet current compliance requirements. Kade Francois MD 09/16/2024 2:57:33 PM This report has been signed electronically.Kade Francois MD Number of Addenda: 0 Note Initiated On: 09/16/2024 2:17 PM Scope In: Scope Out: ? Endoscopy Department at [facility] - [address] [place] [address], ? [place] [id number] Procedure Note Kade Francois MD - 09/16/2024 [facility] GI Patient Name: Jesus Calix Procedure Date: 09/16/2024 2:17 PM Date of : 1955 Age: 69 Gender: Male Note Status: Finalized Attending MD: Kade Francois MD, Procedure Date No Time: 09/16/2024 Procedure: Upper GI endoscopy Indications: Suspected upper gastrointestinal bleeding inpatient with unexplained iron deficiency anemia, Grewal's esophagus, Follow-up of Grewal's esophagus Providers: Kade Francois MD Referring MD: Kade Francois MD Medicines: Monitored Anesthesia Care Complications: No immediate complications. Estimated blood loss: Minimal. Estimated Blood Loss: Estimated blood loss was minimal. Procedure: Pre-Anesthesia Assessment: - Prior to the procedure, a History and Physicalwas performed, and patient medications and allergieswere reviewed. The patient is competent. The risks and benefits of the procedure and the sedation optionsand risks were discussed with the patient. Allquestions were answered and informed consent was obtained. Patient identification and proposed procedure were verified by the physician, the nurse, theanesthetist and the avionic technician in the pre-procedure area in the endoscopy suite. Mental Status Examination: alertand oriented. Airway Examination: normal oropharyngeal airway and neck mobility. Respiratory Examination: clear to auscultation. CV Examination: normal. Prophylactic Antibiotics: The patient does notrequire prophylactic antibiotics. Prior Anticoagulants: The patient has taken no anticoagulant or antiplatelet agents. ASA Grade Assessment: III - A patient with severe systemic disease. After reviewing the risksand benefits, the patient was deemed in satisfactory condition to undergo the procedure. The anesthesia plan was to use monitored anesthesia care (MAC). Immediately prior to administration of medications, the patient was re-assessed for adequacy to receive sedatives. The heart rate, respiratory rate, oxygen saturations, blood pressure, adequacy of pulmonary ventilation, and response to care were monitored throughout the procedure. The physical status ofthe patient was re-assessed after the procedure. After obtaining informed consent, the endoscope was passed under direct vision. Throughout theprocedure, the patient's blood pressure, pulse, and oxygen saturations were monitored continuously.The Olympus Gastroscope was introduced through the mouth, and advanced to the second part of duodenum. The upperGI endoscopy was accomplished without difficulty. The patient tolerated the procedure well. Findings: The examined duodenum was normal. Biopsies weretaken with a cold forceps for histology. Estimated blood loss was minimal. A medium-sized hiatal hernia was found. Theproximal extent of the gastric folds (end of tubularesophagus) was 35 cm from the incisors. The hiatal narrowingwas 40 cm from the incisors. The esophagus and gastroesophageal junction were examined with white light and narrow band imaging (NBI). There were esophageal mucosal changessecondary to established long-segment Grewal's disease.These changes involved the mucosa at the upper extent ofthe gastric folds (35 cm from the incisors) extendingto the Z-line (25 cm from the incisors).[place]-colored mucosa was present. The maximum longitudinal extentof these esophageal mucosal changes was 10 cm inlength. Mucosa was biopsied with a cold forceps forhistology. A total of 2 specimen bottles were sent topathology. Estimated blood loss was minimal. Procedure Code(s): --- Professional --- 30041, Esophagogastroduodenoscopy, flexible, transoral; with biopsy, single or multiple Diagnosis Code(s): --- Professional --- K22.70, Grewal's esophagus without dysplasia D50.9, Iron deficiency anemia, unspecified CPT copyright 2020 [employer]. All rights reserved. The codes documented in this report are preliminary and upon preschool teacher reviewmay be revised to meet current compliance requirements. Kade Francois MD 09/16/2024 2:57:33 PM This report has been signed electronically.Kade Francois MD Number of Addenda: 0 Note Initiated On: 09/16/2024 2:17 PM Scope In: Scope Out: Endoscopy Department at [facility] - [address] [place] [id number] IMPRESSION: - Normal examined duodenum. Biopsied. - Medium-sized hiatal hernia. - Esophageal mucosal changes secondary toestablished long-segment Grewal's disease. Biopsied. Recommendation: - Await pathology results. - Return to GI clinic. us Kade Francois MD GI~PROCEDURE ORDERABLES Fin al Result * Tissue exam (09/16/2024 2:42 PM EST) Final Diagnosis A. Duodenum, biopsies: Benign duodenal mucosa with no specific pathologic change. No villous blunting or increased intraepithelial lymphocytes identified. B. Esophagus, lower, biopsies: Grewal's esophagus. Negative for dysplasia. C. Esophagus, mid, biopsies: Grewal's esophagus. Negative for dysplasia. 09/17/2024 3:48 PM EST [facility] Gross Description A. Small Intestine, Duodenum, biopsies: Labeled duodenum biopsies . Received in formalin are four irregular kilgore mucosal tissue fragments, each measuring approximately 0.2 cm in greatest dimension, which are wrapped in paper and submitted in toto one cassette, four pieces, multiple levels on one slide. B. Esophagus, lower biopsies: Labeled esophagus, lower . Received in formalin are seven irregular kilgore mucosal tissue fragments, each measuring approximately 0.2 cm in greatest dimension, which are wrapped in paper and submitted in toto one cassette, seven pieces, multiple levels on one slide. C. Esophagus, mid biopsies: Labeled midesophagus . Received in formalin are kilgore irregular pink-white mucosal tissue fragments, ranging from less than 0.1 cm to 0.3 cm in greatest dimension, which are wrapped in paper and submitted in toto in two cassettes, biopsies are pieces each, multiple levels on the slide. TIERRA 09/17/2024 3:48 PM EST [facility] Disclaimer Unless otherwise specified, all tissue is 10% NB formalin fixed and paraffin embedded. 09/17/2024 3:48 PM EST [facility] Tissue Duodenal structure / Unknown 09/16/2024 2:42 PM EST 09/16/2024 3:21 PM EST Tissue specimen (specimen) Esophageal structure / Unknown 09/16/2024 2:45 PM EST 09/16/2024 3:21 PM EST Tissue specimen (specimen) Esophageal structure / Unknown 09/16/2024 2:50 PM EST 09/16/2024 3:21 PM EST us Kade Francois MD LAB PATHOLOGY ORDERABLES Fi nal Result [facility] [address] [place] [address], * (ABNORMAL) Vitamin B12 and folate (09/07/2024 3:37 PM EST) [facility] Vitamin B-12 424 250 - 900 pcg/mL LAB CHEMISTRY METHOD 09/07/2024 5:34 PM [facility] Folate >20.0(H) 2.8 - 17.0 ng/ml LAB CHEMISTRY METHOD 09/07/2024 5:34 PM [facility] Blood Venous blood specimen / Unknown Venipuncture / Unknown 09/07/2024 3:37 PM EST 09/07/2024 4:47 PM EST us Bib Sharp MD LAB BLOOD ORDERABLES Final R esult [facility] [address] [place] [address], [place] [phone] * (ABNORMAL) CBC auto differential (09/07/2024 3:37 PM EST) [facility] [facility] WBC 7.4 4.8 - 10.8 K/mcL LAB HEMETOLOGY METHOD 09/07/2024 5:04 PM [facility] RBC 4.90 4.50 - 5.50 M/mcL LAB HEMETOLOGY METHOD 09/07/2024 5:04 PM [facility] Hemoglobin 11.8(L) 13.5 - 17.5 g/dL LAB HEMETOLOGY METHOD 09/07/2024 5:04 PM [facility] Hematocrit 39.3(L) 42.0 - 54.0 % LAB HEMETOLOGY METHOD 09/07/2024 5:04 PM [facility] MCV 80.2 79.0 - 98.0 FL LAB HEMETOLOGY METHOD 09/07/2024 5:04 PM [facility] MCH 24.1(L) 27.0 - 32.0 pcg LAB HEMETOLOGY METHOD 09/07/2024 5:04 PM [facility] MCHC 30.0(L) 32.0 - 37.0 g/dL LAB HEMETOLOGY METHOD 09/07/2024 5:04 PM [facility] RDW 21.1(H) 11.0 - 15.0 % LAB HEMETOLOGY METHOD 09/07/2024 5:04 PM [facility] Platelets 255 130 - 400 K/mcL LAB HEMETOLOGY METHOD 09/07/2024 5:04 PM [facility] MPV 9.9 7.0 - 11.0 FL LAB HEMETOLOGY METHOD 09/07/2024 5:04 PM [facility] NRBC 0.0 <1.0 % LAB HEMETOLOGY METHOD 09/07/2024 5:04 PM [facility] NRBC Absolute 0.00 <0.10 K/mcL LAB HEMETOLOGY METHOD 09/07/2024 5:04 PM [facility] Neutrophils Relative 58.8 % LAB HEMETOLOGY METHOD 09/07/2024 5:04 PM [facility] Lymphocytes Relative 31.5 % LAB HEMETOLOGY METHOD 09/07/2024 5:04 PM [facility] Monocytes Relative 8.1 % LAB HEMETOLOGY METHOD 09/07/2024 5:04 PM [facility] Eosinophils Relative 1.1 % LAB HEMETOLOGY METHOD 09/07/2024 5:04 PM [facility] Basophils Relative 0.1 % LAB HEMETOLOGY METHOD 09/07/2024 5:04 PM [facility] Immature Granulocytes Relative 0.4 % LAB HEMETOLOGY METHOD 09/07/2024 5:04 PM [facility] Neutrophils Absolute 4.36 1.50 - 7.00 K/mcL LAB HEMETOLOGY METHOD 09/07/2024 5:04 PM [facility] Lymphocytes Absolute 2.34 1.00 - 5.00 K/mcL LAB HEMETOLOGY METHOD 09/07/2024 5:04 PM EST [facility] Monocytes Absolute 0.60 0.20 - 1.00 K/mcL LAB HEMETOLOGY METHOD 09/07/2024 5:04 PM EST [facility] Eosinophils Absolute 0.08 0.00 - 0.50 K/[facility] LAB HEMETOLOGY METHOD 09/07/2024 5:04 PM EST [facility] Basophils Absolute 0.01 0.00 - 0.20 K/[facility] LAB HEMETOLOGY METHOD 09/07/2024 5:04 PM EST [facility] Immature Granulocytes Absolute 0.03 0.00 - 0.03 K/[facility] LAB HEMETOLOGY METHOD 09/07/2024 5:04 PM EST [facility] Blood Venous blood specimen / Unknown Venipuncture / Unknown 09/07/2024 3:37 PM EST 09/07/2024 4:47 PM EST Bib Sharp MD LAB BLOOD ORDERABLES Final R esult [facility] [address] [place] [address], * (ABNORMAL) Iron and TIBC (09/07/2024 3:37 PM EST) Only the most recent of2 resultswithin the time period is included. Iron 53 50 - 160 mcg/dL LAB CHEMISTRY METHOD 09/07/2024 5:11 PM EST [facility] TIBC 451(H) 250 - 450 mcg/dL LAB CHEMISTRY METHOD 09/07/2024 5:11 PM [facility] Iron Saturation 12(L) 20 - 50 % LAB CHEMISTRY METHOD 09/07/2024 5:11 PM EST [facility] Blood Venous blood specimen / Unknown Venipuncture / Unknown 09/07/2024 3:37 PM EST 09/07/2024 4:47 PM EST Bib Sharp MD LAB BLOOD ORDERABLES Final R esult Performing Organization Address [facility] Co de Phone Number [facility] [address] [place] [address], [place] [phone] * (ABNORMAL) Reticulocyte count (09/07/2024 3:37 PM EST) Retic Ct Abs 0.070 0.030 - 0.090 M/mcL LAB HEMETOLOGY METHOD 09/07/2024 5:04 PM [facility] Retic Ct Pct 1.5 0.7 - 1.7 % LAB HEMETOLOGY METHOD 09/07/2024 5:04 PM [facility] Immature Retic Fract 19.2(H) 2.3 - 15.9 % LAB HEMETOLOGY METHOD 09/07/2024 5:04 PM EST [facility] Reticulocyte Hemoglobin 31.3 >29.0 pcg LAB HEMETOLOGY METHOD 09/07/2024 5:04 PM [facility] Blood Venous blood specimen / Unknown Venipuncture / Unknown 09/07/2024 3:37 PM EST 09/07/2024 4:47 PM EST Bib Sharp MD LAB BLOOD ORDERABLES Final R esult Performing Organization Address City/[facility]/ZIP Co de Phone Number [facility] [address] [place] [address], [place] [phone] * (ABNORMAL) Ferritin (09/07/2024 3:37 PM EST) Only the most recent of2 resultswithin the time period is included. Ferritin 15(L) 26 - 388 ng/mL LAB CHEMISTRY METHOD 09/07/2024 5:34 PM EST [facility] Blood Venous blood specimen / Unknown Venipuncture / Unknown 09/07/2024 3:37 PM EST 09/07/2024 4:47 PM EST Bib Sharp MD LAB BLOOD ORDERABLES Final R esult Performing Organization Address [facility]/ZIP Co de Phone Number [facility] [address] [place] [address], * Prostate specific antigen screen (08/25/2024 1:58 PM EST) PSA 1.27 0.00 - 4.00 ng/mL LAB CHEMISTRY METHOD 08/25/2024 4:41 PM EST [facility] Blood Venous blood specimen / Unknown Venipuncture / Unknown 08/25/2024 1:58 PM EST 08/25/2024 1:58 PM EST Narrative [facility] - 08/25/2024 4:41 PM EST The Siemens Advia Centaur Chemiluminescent Immunoassay is used. Results obtained with different assay methods or kits cannot be used interchangeably. Results cannot be interpreted as absolute evidence of the presence or absence of malignant disease. [facility] LAB BLOOD ORDERABLES Final Re sult Performing Organization Address [facility]/ZIP Co de Phone Number [facility] [address] [place] [address], * (ABNORMAL) Lipid panel with reflex to direct LDL (08/25/2024 1:58 PM EST) Cholesterol 151 0 - 200 mg/dL LAB CHEMISTRY METHOD 08/25/2024 4:34 PM EST [facility] Triglycerides 230(H) 0 - 150 mg/dL LAB CHEMISTRY METHOD 08/25/2024 4:34 PM EST [facility] HDL 41 >=40 mg/dL LAB CHEMISTRY METHOD 08/25/2024 4:34 PM EST [facility] LDL Calculated 64 0 - 100 mg/dL LAB CHEMISTRY METHOD 08/25/2024 4:34 PM EST [facility] VLDL Cholesterol Missael 46 mg/dL LAB CHEMISTRY METHOD 08/25/2024 4:34 PM EST [facility] Non HDL Chol. (LDL+VLDL) 110 <145 mg/dL LAB CHEMISTRY METHOD 08/25/2024 4:34 PM EST [facility] Chol/HDL Ratio 3.7 0.0 - 4.4 LAB CHEMISTRY METHOD 08/25/2024 4:34 PM EST [facility] Blood Venous blood specimen / Unknown Venipuncture / Unknown 08/25/2024 1:58 PM EST 08/25/2024 1:58 PM EST us [facility] LAB BLOOD ORDERABLES Final Re sult Performing Organization Address [facility] de Phone Number [facility] [address] [place] [address], * Microalbumin creatinine urine ratio (08/25/2024 1:58 PM EST) Creatinine, Urine 22.0 mg/dL LAB CHEMISTRY METHOD 08/25/2024 5:10 PM [facility] Microalb, Ur 5.4 0.0 - 29.0 mg/L LAB CHEMISTRY METHOD 08/25/2024 5:10 PM [facility] Microalb/Creat Ratio 25 <30 mg/g creat LAB CHEMISTRY METHOD 08/25/2024 5:10 PM [facility] Urine Urine specimen from urethra / Unknown Non-blood Collection / Unknown 08/25/2024 1:58 PM EST 08/25/2024 1:58 PM EST us [facility] LAB URINE ORDERABLES Final Re sult Performing Organization Address [facility]/ZIP Co de Phone Number [facility] [address] [place] [address], [place] [phone] * (ABNORMAL) Hemoglobin A1c (08/25/2024 1:58 PM EST) [facility] Hemoglobin A1C 8.5(H) <6.5 % LAB CHEMISTRY METHOD 08/25/2024 8:47 PM EST [facility] Mean Bld Glu Estim. 197 mg/dL LAB CHEMISTRY METHOD 08/25/2024 8:47 PM [facility] Blood Venous blood specimen / Unknown Venipuncture / Unknown 08/25/2024 1:58 PM EST 08/25/2024 1:58 PM EST [facility] LAB BLOOD ORDERABLES Final Re sult [facility] [address] [place] [address], [place] [phone] * (ABNORMAL) Comprehensive metabolic panel (08/25/2024 1:58 PM EST) [facility] Sodium 137 133 - 145 mmol/L LAB CHEMISTRY METHOD 08/25/2024 4:42 PM [facility] Potassium 5.2 3.5 - 5.5 mmol/L LAB CHEMISTRY METHOD 08/25/2024 4:42 PM [facility] Chloride 104 96 - 110 mmol/L LAB CHEMISTRY METHOD 08/25/2024 4:42 PM [facility] CO2 31 21 - 32 mmol/L LAB CHEMISTRY METHOD 08/25/2024 4:42 PM [facility] Anion Gap 2(L) 3 - 11 LAB CHEMISTRY METHOD 08/25/2024 4:42 PM [facility] Glucose 116(H) 70 - 100 mg/dL LAB CHEMISTRY METHOD 08/25/2024 4:42 PM [facility] BUN 23 5 - 25 mg/dL LAB CHEMISTRY METHOD 08/25/2024 4:42 PM [facility] Creatinine 0.92 0.70 - 1.30 mg/dL LAB CHEMISTRY METHOD 08/25/2024 4:42 PM [facility] eGFR 89 >=60 mL/min/1. 73m2 LAB CHEMISTRY METHOD 08/25/2024 4:42 PM [facility] Comment:Calculation based on the??Chronic Kidney Disease Epidemiology Collaboration (CKD-EPI) equation refit??without adjustment for race. BUN/Creatinine Ratio 25.0 LAB CHEMISTRY METHOD 08/25/2024 4:42 PM [facility] Calcium 9.5 8.5 - 10.5 mg/dL LAB CHEMISTRY METHOD 08/25/2024 4:42 PM [facility] AST (SGOT) 19 10 - 42 unit/L LAB CHEMISTRY METHOD 08/25/2024 4:42 PM [facility] ALT (SGPT) 25 10 - 60 unit/L LAB CHEMISTRY METHOD 08/25/2024 4:42 PM [facility] Alkaline Phosphatase 82 42 - 121 unit/L LAB CHEMISTRY METHOD 08/25/2024 4:42 PM [facility] Total Protein 7.7 6.0 - 8.0 g/dL LAB CHEMISTRY METHOD 08/25/2024 4:42 PM [facility] Albumin 4.1 3.2 - 5.0 g/dL LAB CHEMISTRY METHOD 08/25/2024 4:42 PM [facility] Total Bilirubin 0.3 0.0 - 1.4 mg/dL LAB CHEMISTRY METHOD 08/25/2024 4:42 PM [facility] Blood Venous blood specimen / Unknown Venipuncture / Unknown 08/25/2024 1:58 PM EST 08/25/2024 1:58 PM EST us [facility] LAB BLOOD ORDERABLES Final Re sult [facility] [address] [place] [address], [place] [phone] * Hepatitis C antibody (06/22/2024 1:16 PM EST) [facility] Hepatitis C Antibody Negative Negative LAB CHEMISTRY METHOD 06/22/2024 2:43 PM EST [facility] Blood Venous blood specimen / Unknown Venipuncture / Unknown 06/22/2024 1:16 PM EST 06/22/2024 1:21 PM EST Gayla Pinto MD LAB BLOOD ORDERABLES Final Resul t [facility] [address] [place] [address], [place] [phone] * Diabetes Eye Exam (03/19/2024) [facility] Diabetes: Annual Retina Eye Exam abstracted Historical Provider HEALTH MAINTENANCE Final Result * Diabetes Foot Exam (12/15/2023) [facility] Diabetes: Annual Foot Exam abstracted Historical Provider HEALTH MAINTENANCE Final Result * Falls Risk Assessment (08/18/2023) [facility] Falls Risk Assessment abstracted Historical Provider HEALTH MAINTENANCE Final Result * US ABDOMINAL AORTA REAL TIME SCREEN STUDY AAA (12/31/2018 9:20 AM EDT) Anatomical Region Laterality Modality Ultrasound 11/30/2018 2:59 PM EDT Narrative 12/31/2018 11:51 AM EDT Abdominal aortic ultrasound: HISTORY: Screening for AAA Abdominal aorta is normal in size measuring 2.1 cm proximally, 1.7 cm mid and 1.5 cm distally. Common iliac arteries are normal in size. IMPRESSION: IMPRESSION: No evidence of AAA. Procedure Note Raúl Serra - 08/18/2023 Abdominal aortic ultrasound: HISTORY: Screening for AAA Abdominal aorta is normal in size measuring 2.1 cm proximally, 1.7 cm midand 1.5 cm distally. Common iliac arteries are normal in size. IMPRESSION: IMPRESSION: No evidence of AAA. Rivka Nguyen MD [facility] [place] PROCEDURES Edited Result - Final from Last 3 Months or Most Recently Relevant to Health Maintenance Insurance [employer] MEDICARE Advance Directives * Full Code - Default (Latest Code Status on File) Date Activated Date Inactivated Comments 06/20/2024 7:46 PM 06/24/2024 4:22 PM This is ord er is used when code status has not been discussed with the patient, or code status is otherwise unknown/unconfirmed To update the patient's code status, place a code status order. Do not modify or discontinue any currently active code status orders. Care Teams Retirement Officer Relationship Specialty Start Date End Date Rivka Nguyen MD [address] [place] [address] PCP - General Internal Medicine 01/05/15
--- OUTSIDE RECORDS SUMMARY | 2024-11-22 13:13 | XMS_ITS | Encounter Summary ---
Author Organization [facility] Address [address] [place] [address] Care Team Providers Care Videotape Recording Engineer Name Role Phone Rivka Nguyen MD Primary Care Provider [phone] Reason for Visit * Reason Onset Date Comments Cough 11/19/2024 Shortness of Breath 11/19/2024 Encounter Details Date Type Department Care Team (Late st Contact Info) Description 11/19/2024 Nurse Triage Adult Medicine [address] [phone] Rivka Nguyen MD [address] [place], [place] Cough; Shortness of Breath Social History Tobacco Use Types Packs/Day Years Used Date Smoking Tobacco: Former Cigarettes Q uit: 07/14/1968 Smokeless Tobacco: Never Alcohol Use Standard Drinks/Week Comments Yes 6 [...] care for your loved ones. For example, school child care attendant or elderly care for an older adult? [...] Orientation Straight 09/16/2024 12 :21 PM EST documented as of this encounter Functional Status * Are you deaf or do you have serious difficulty hearing? Answer Date of Assessment Author No 06/20/2024 3:04 PM Ziyad Johnston RN * Are you blind or do you have serious difficulty seeing, even when wearing glasses? Answer Date of Assessment Author No 06/20/2024 3:04 PM Ziyad Johnston RN * Do you have serious difficulty walking or climbing stairs? Answer Date of Assessment Author No 06/20/2024 3:04 PM Ziyad Johnston RN * Do you have serious difficulty dressing or bathing? Answer Date of Assessment Author No 06/20/2024 3:04 PM Ziyad Johnston RN * Because of a physical, mental, or emotional condition, do you have serious difficulty doing errandsalone such as visiting the doctor? Answer Date of Assessment Author No 06/20/2024 3:04 PM Ziyad Johnston RN documented as of this encounter Mental Status * Because of a physical, mental, or emotional condition, do you have serious difficulty concentrating, remembering, or making decisions? (5 years old or older) Answer Entry Date Author No 06/20/2024 3:04 PM Ziyad Johnston RN documented in this encounter Progress Notes * Mahogany Arciniega RN - 11/19/2024 12:06 PM EDT He was offered an appointment at [address] [place] [address] today but declined. He was instructed to go to any [facility] of his choice. Reason for Disposition [1] MILD difficulty breathing (e.g., minimal/no SOB at rest, SOB with walking, pulse <100) AND [2] still present when not coughing Answer Assessment - Initial Assessment Questions 1. ONSET: When did the cough begin? 2 days ago 2. SEVERITY: How bad is the cough today? He rates the cough as 6/10 3. SPUTUM: Describe the color of your sputum (e.g., none, dry cough; clear, white, yellow, green) Yellow 4. HEMOPTYSIS: Are you coughing up any blood? If Yes, ask: How much? (e.g., flecks, streaks, tablespoons, etc.) No hemoptysis 5. DIFFICULTY BREATHING: Are you having difficulty breathing? If Yes, ask: How bad is it? (e.g., mild, moderate, severe) - MILD: No SOB at rest, mild SOB with walking, speaks normally in sentences, can lie down, no retractions, pulse < 100. - MODERATE: SOB at rest, SOB with minimal exertion and prefers to sit, cannot lie down flat, speaksin phrases, mild retractions, audible wheezing, pulse 100-120. - SEVERE: Very SOB at rest, speaks in single words, struggling to breathe, sitting hunched forward,retractions, pulse > 120. He reports mild shortness of breath 6. FEVER: Do you have a fever? If Yes, ask: What is your temperature, how was it measured, and when did it start? No fever 7. CARDIAC HISTORY: Do you have any history of heart disease? (e.g., heart attack, congestive heart failure) CAD, HTN 8. LUNG HISTORY: Do you have any history of lung disease? (e.g., pulmonary embolus, asthma, emphysema) Asthma 9. PE RISK FACTORS: Do you have a history of blood clots? (or: recent major surgery, recent prolonged travel, bedridden) No PE risk factors apart from EGD in October 21. OTHER SYMPTOMS: Do you have any other symptoms? (e.g., runny nose, wheezing, chest pain) No other symptoms 11. : Is there any chance you are ? When was your last menstrual period? No. Pt is male 12. TRAVEL: Have you traveled out of the country in the last month? (e.g., travel history, exposures) He denies any recent air travel or known exposure to Covid 19. He states he took a home Covid test yesterday and it was negative. Protocols used: Cough - Acute [id number] * Lynette Meléndez - 11/19/2024 11:50 AM EDT Patient call requires triage: Symptoms patient is presenting: Patient is asking for antibiotics, coughing up mucus, yellow in color, SOB. Patient says he has a lung infection. How long has patient had these symptoms?: 2 days For ALL patients calling to schedule any appointment (routine, sick visit, follow up, consult, etc.) in the outpatient setting please ask the following questions: Do you have fever of higher than 101, sore throat with difficulty swallowing or severe shortness ofbreath? no If YES to any of these above symptoms, send a message to triage and do not book. Red dot. If no, an audio or video visit should be booked. Have you had close contact with someone with Coronavirus in the last 14 days? no Have you traveled abroad? no Have you traveled recently to another state outside of [place], [place], [place], [place], [place], [place], [place]? no o If yes, did you quarantine for 14 days or have a negative covid test? no If yes to any of the above, patient is not to be scheduled in office until after 14 day quarantine or negative covid test. If pain or injury related was it due to an accident at work or from a motor vehicle accident? If yes, date of accident/Injury: No If yes, gather 3rd constitution party insurance information Third Republican Information: not applicable PCP: Rivka Nguyen MD Payor: [employer] MEDICARE / Plan: [facility] MEDICARE ADVANTAGE / Product Type: *No Product type* / documented in this encounter Plan of Treatment Upcoming Encounters Date Type Department Care Team (Late st Contact Info) Description 12/08/2024 2:45 PM EDT Office Visit Adult Medicine [address] [address] Rivka Nguyen MD [address] [place] [address] documented as of this encounter Visit Diagnoses Not on filedocumented in this encounter Additional Health Concerns Assessment Noted Time PHQ-9 Depression Total Score: 0 07/22/19 25 9:21 PM EST documented as of this encounter Care Teams Videotape Recording Engineer Relationship Specialty Start Date End Date Rivka Nguyen MD [address] [place] [id number] PCP - General Internal Medicine 01/05/15 documented as of this encounter
--- OUTSIDE RECORDS SUMMARY | 2024-11-22 13:13 | XMS_ITS | Encounter Summary ---
Author Organization [employer] [facility] Address [address] [place] [address] [address] [place] [address] Care Team Providers Care Senior Sales Associate Name Role Phone Unavailable Primary Care Provider Unavailabl e Encounter Details Date Type Department Care Team (Latest Contact Info) Description 10/24/2020 Abstract [facility] CONVERSIONS Dental, Provider, DDS Social History [...]
--- OUTSIDE RECORDS SUMMARY | 2024-11-22 13:13 | XMS_ITS ---
Author Organization [facility] Address [address] [place] [address] Care Team Providers Care Commutator Tester Name Role Phone Rivka Nguyen Primary Care Provider ALEKSANDRA Rodriguez [phone] Allergies Allergen (clinical drug ingredient) Drug/Non Drug Allergy documented on EMR Reaction Allergy Type Onset Date Status sertraline Zoloft Unknown Drug Allergy Active Dust Mites Unknown Allergy Active Pollen Pollen Unknown Allergy Active REASON FOR VISIT 3 month diabetic check Medications Medication SIG (Take, Route, Frequency, Duration) Notes Start Date End Date Status Simvastatin 1 tab at night Not-Taking Zoloft 1 tab prn Not-Taking metFORMIN HCl 1000 MG 1 tablet with a meal Orally bid Active Omeprazole 20 MG 1 capsule 30 minutes before morning meal Orally Once a day 1 cap daily Active Aspir-81 daily Active Losartan Potassium 1 tab daily Active Rosuvastatin Calcium Active Triamcinolone Acetonide 0.5 % 1 application Externally as directed Active Ambien 1 tab at night Active Vital Signs Temperature 97.4 degrees Fahrenheit 07/05/20 24 Heart Rate 91 /min 07/05/2024 Respiratory Rate 16 /min 07/05/2024 Height 5ft 8in in 07/05/2024 Weight 177.7 lbs 07/05/2024 BMI 27.02 kg/m2 07/05/2024 Encounters Encounter Location Date Provider Diagnosis [facility] [address] [address] 07/05/2024 ALEKSANDRA BECKER Type 2 diabetes mellitus with diabetic polyneuropathy, without long-term current use of insulin E11.42 ; Onychomycosis B35.1 ; Pain in left toe(s) M79.675 and Pain in right toe(s) M79.674 Assessments Encounter Date Diagnosis (ICD Code) Assessment Notes Treatment Notes Treatment Clinical Notes Section Notes 07/05/2024 Type 2 diabetes mellitus with diabetic polyneuropathy, without long-term current use of insulin (ICD-10 - E11.42) Discussed with patient regarding proper glucose control, exercise, and diet. Explained to patient proper shoe gear, and importance of daily foot checks. I reviewed neuropathy and why it occurs in diabetics. I educated the patient on proper blood sugar control and the importance of an HgBA1c of less than 7.0%. We discussed the sensation he is feeling under the foot is related to neuropathy and the nerves. We discussed this sensation comes and goes. I recommended he avoids barefoot walking. I also discussed this could happen when his blood sugar is higher than normal. He is in agreement with this plan. 07/05/2024 Onychomycosis (ICD-10 - B35.1) I reviewed with the patient various treatment methods for toenail fungus including topical, oral, laser, and removal of the infected toenails. He would like to continue current treatment course. He has about 95% improvement this visit. Rx written for Ciclopirox to apply to each affected toenail daily. Aseptic debridement of toenails x 10 with stencil cutter machine and curette, pt tolerated well. Discussed with the patient that routine nail care services are only covered by insurance every 60 days. Pt understands that if they would like to return prior to this time frame, they may have to pay out of pocket. 07/05/2024 Pain in left toe(s) (ICD-10 - M79.675) 07/05/2024 Pain in right toe(s) (ICD-10 - M79.674) Plan Of Treatment Next Appt Details Follow Up: 3 Months, Reason: Provider Name:ALEKSANDRA BECKER, 01/07/2025 01:00:00 PM, [address] [address], [place], [address], Progress Notes * Jesus MORENODOB:1955 (69 yo M)Acc No.[id number]:07/05/2024 Progress Note Patient:?Jesus MORENO Provider:?Aleksandra Becker DPM :1955???Age:69 Y???Sex:Male Eleazar e:07/05/2024 Address:[address] [place] [address] [address] , [place] [id number] Pcp:Rivka Nguyen Subjective: * Chief Complaints: * ???3 month diabetic check * HPI: ???Constitutional:?This 69 y/o male returns to my office for a diabetic foot evaluation. He was hospitalized 2 weeks ago for cellulitis and dermatitis. He is currently taking antibiotics and using Kenalog cream. He tries to go on a walk at least once a day. He states there is an occasional sensation under the left foot where he will feel like something is stuck under there, but when he checks there is nothing on the foot. He states the toenails are tender this visit, especially in the corners. He has been using the ciclopirox for the toenails with improvement. He has no other foot complaints this visit. His last HgBA1c was 7.0. His last visit with his PCP care team Dr. Nguyen for diabetes management was last week.. Allergies and medical history reviewed. * ROS:?GENERAL: Pt denies nausea, fever, vomiting, chills, or shortness of breath. Pt in NAD. ALLERGY: patient denies any new allergy HEME/ONC: patient denies any bleeding or clotting disorders CARDIOLOGY: pt denies chest pain, palpitations LUNGS: pt denies shortness of breath ABDOMEN: patient denies any bloating, abdominal pain, or swelling MUSCULOSKELETAL: See HPI, otherwise no joint pain or swelling, back pain, or muscle pain. SKIN: see HPI, otherwise no lesions, rash or itching NEURO: No persistent headache, weakness or numbness PSYCH: patient denies any current anxiety or depression The remainder of the review of systems is noncontributory. * Medical History:? * Surgical History:?colonoscop y cataract removal bilateral hernia repair * Hospitalization/Major Diagno stic Procedure:?+ COVID 2cellulitis on the arms X 4 days 06/2024 * Family History:?Father: dece ased, pneumonia.?Mother: , diabetes mellitus, heart failure.?Maternal Grand Mother: , alzheimer's dementia.? * Social History:?former smoker, quit 1969 Alcohol: occasional. * Medications:?TakingTriamcino lone Acetonide 0.5 % Cream 1 application Externally as directed Rosuvastatin Calcium Losartan Potassium , Notes to Pharmacist: 1 tab dailyAmbien , Notes to Pharmacist: 1 tab at nightAspir-81 , Notes to Pharmacist: dailyOmeprazole 20 MG Capsule Delayed Release 1 capsule 30 minutes before morning meal Orally Once a day , Notes to Pharmacist: 1 cap dailymetFORMIN HCl 1000 MG Tablet 1 tablet with a meal Orally bid Taking Triamcinolone Acetonide 0.5 % Cream 1 application Externally as directed Taking Rosuvastatin Calcium Taking Losartan Potassium , Notes to Pharmacist: 1 tab dailyTaking Ambien , Notes to Pharmacist: 1 tab at nightTaking Aspir-81 , Notes to Pharmacist: dailyTaking Omeprazole 20 MG Capsule Delayed Release 1 capsule 30 minutes before morning meal Orally Once a day , Notes to Pharmacist: 1 cap dailyTaking metFORMIN HCl 1000 MG Tablet 1 tablet with a meal Orally bid Not-TakingZoloft , Notes to Pharmacist: 1 tab prnSimvastatin , Notes to Pharmacist: 1 tab at nightMedication List reviewed and reconciled with the patientNot-Taking Zoloft , Notes to Pharmacist: 1 tab prnNot-Taking Simvastatin , Notes to Pharmacist: 1 tab at nightMedication List reviewed and reconciled with the patient * Allergies:?Dust MitesGayle nice[Allergies Verified] Objective: * Vitals:?Wt:177.7lbs, Ht: 5ft 8in, BMI:27.02Index, HR:91/min, Temp:97.4F, RR:16/min, Ht-cm: 172.72, Wt-k.6 kg. * Examination: ???General Examination: ???GENERAL: AAO x 3 in NAD VASCULAR: Dorsalis pedis pulses are 1/4 bilaterally and Posterior tibial pulses are 1/4 bilaterally. Capillary filling time within normal limits the digits. No pallor on elevation or rubor on dependency. No hair growth. No varicosities. Denies rest pain or claudication pain. NEUROLOGICAL: Sharp/dull sensation intact, protective sensation intact 10/10 with [place] isabel bilaterally, vibratory sensation with tuning fork diminished to the tibial tuberosity. ORTHOPEDIC: Good muscle strength 4+/5 of all flexors and extensors. Dorsi flexion of ankle ,10 degrees, plantar flexion WNL. No muscle atrophy. DERMATOLOGICAL:.Hemosiderin deposits of the toes and the dorsal foot bilaterally. Normal skin temperature, normal skin turgor. 4mm Thickened yellowed toenails hallux, and 2nd toenails bilaterally with subungual debris and 95% proximal clearance. BIOMECHANICS: STJ ROM WNL, MTJ ROM WNL, 1st MPJ ROM limited. On weight bearing, pes planovalgus deformity. 4 degrees of calcaneal valgus left foot. Mild weakness of the tibialis posterior tendon of the right foot. Flexible pes planus deformity. Pronation on ambulation. SHOES:sneakers with Custom orthotics. Assessment: * Assessment: 1.?Type 2 diabetes mellitus with diabetic polyneuropathy, without long-term current use of insulin - E11.42???2.?Onychomycosis - B35.1???3.?Pain in left toe(s) - M79.675???4.?Pain in right toe(s) - M79.674??? Plan: * Treatment: 2.?Onychomycosis? Clinical Notes: I reviewed with the patient various treatment methods for toenail fungus including topical, oral, laser, and removal of the infected toenails. He would like to continue current treatment course. He has about 95% improvement this visit. Rx written for Ciclopirox to apply to each affected toenail daily. Aseptic debridement of toenails x 10 with stencil cutter machine and curette, pt tolerated well. Discussed with the patient that routine nail care services are only covered by insurance every 60 days. Pt understands that if they would like to return prior to this time frame, they may have to pay out of pocket.?? * Procedure Codes:?12064 DEBRI DE NAIL, 6 OR MORE, Modifiers: Q9 * Follow Up:?3 Months * Billing Information: * Visit Code:? 36890 Office Visit, Est Pt., Level 2. Modifiers: 25 * Procedure Codes:? 56247 DEBRIDE NAIL, 6 OR MORE. Modifiers: Q9 * Sign off status: Completed true * Provider:?Aleksandra Becker DPM Date:? 07/05/2024 Generated for Chantell soto/Mark/Antoinesmitting on:?11/22/2024 01:12 PM EDT History and Physical Notes * HPI (History of Present Illness) Category Sub-Category Detail Notes Category Not es Constitutional This 69 y/o m benton returns to my office for a diabetic foot evaluation. He was hospitalized 2 weeks ago for cellulitis and dermatitis. He is currently taking antibiotics and using Kenalog cream. He tries to go on a walk at least once a day. He states there is an occasional sensation under the left foot where he will feel like something is stuck under there, but when he checks there is nothing on the foot. He states the toenails are tender this visit, especially in the corners. He has been using the ciclopirox for the toenails with improvement. He has no other foot complaints this visit. His last HgBA1c was 7.0. His last visit with his PCP care team Dr. Nguyen for diabetes management was last week.. Allergies and medical history reviewed. Examination Category Sub-Category Detail Notes Category Not es General Examination GENERAL: AAO x 3 in NAD VASCULAR: Dorsalis pedis pulses are 1/4 bilaterally and Posterior tibial pulses are 1/4 bilaterally. Capillary filling time within normal limits the digits. No pallor on elevation or rubor on dependency. No hair growth. No varicosities. Denies rest pain or claudication pain. NEUROLOGICAL: Sharp/dull sensation intact, protective sensation intact 10/10 with [place] isabel bilaterally, vibratory sensation with tuning fork diminished to the tibial tuberosity. ORTHOPEDIC: Good muscle strength 4+/5 of all flexors and extensors. Dorsi flexion of ankle ,10 degrees, plantar flexion WNL. No muscle atrophy. DERMATOLOGICAL:.Hemosiderin deposits of the toes and the dorsal foot bilaterally. Normal skin temperature, normal skin turgor. 4mm Thickened yellowed toenails hallux, and 2nd toenails bilaterally with subungual debris and 95% proximal clearance. BIOMECHANICS: STJ ROM WNL, MTJ ROM WNL, 1st MPJ ROM limited. On weight bearing, pes planovalgus deformity. 4 degrees of calcaneal valgus left foot. Mild weakness of the tibialis posterior tendon of the right foot. Flexible pes planus deformity. Pronation on ambulation. SHOES:sneakers with Custom orthotics
--- OUTSIDE RECORDS SUMMARY | 2024-11-22 13:13 | XMS_ITS ---
Author Organization [facility] Address [address] [address] Care Team Providers Care Upper Inspector Name Role Phone Rivka Nguyen Primary Care Provider ALEKSANDRA Rodriguez [phone] Allergies Allergen (clinical drug ingredient) Drug/Non Drug Allergy documented on EMR Reaction Allergy Type Onset Date Status sertraline Zoloft Unknown Drug Allergy Active Dust Mites Unknown Allergy Active Pollen Pollen Unknown Allergy Active REASON FOR VISIT 3 month diabetic check Medications Medication SIG (Take, Route, Frequency, Duration) Notes Start Date End Date Status metFORMIN HCl 1000 MG 1 tablet with a meal Orally bid Active Omeprazole 20 MG 1 capsule 30 minutes before morning meal Orally Once a day 1 cap daily Active Simvastatin 1 tab at night Not-Taking Zoloft 1 tab prn Not-Taking Aspir-81 daily Active Betamethasone Dipropionate 0.05 % 1 application Externally Once a day Active Rosuvastatin Calcium Active Triamcinolone Acetonide 0.5 % 1 application Externally as directed Not-Taking Losartan Potassium 1 tab daily Active Ambien 1 tab at night Active Vital Signs Temperature 96.9 degrees Fahrenheit 10/05/19 25 Heart Rate 94 /min 10/04/2024 Respiratory Rate 12 /min 10/04/2024 Height 5ft 8in in 10/04/2024 Weight 174.0 lbs 10/04/2024 BMI 26.45 kg/m2 10/04/2024 Encounters Encounter Location Date Provider Diagnosis [facility] [address] [address] 10/04/2024 ALEKSANDRA BECKER Type 2 diabetes mellitus with diabetic polyneuropathy, without long-term current use of insulin E11.42 ; Onychomycosis B35.1 ; Pain in left toe(s) M79.675 and Pain in right toe(s) M79.674 Assessments Encounter Date Diagnosis (ICD Code) Assessment Notes Treatment Notes Treatment Clinical Notes Section Notes 10/04/2024 Type 2 diabetes mellitus with diabetic polyneuropathy, [...] He is in agreement with this plan. 10/04/2024 Onychomycosis (ICD-10 - B35.1) I reviewed with the patient various treatment methods for toenail fungus including topical, oral, laser, and removal of the infected toenails. He would like to continue current treatment course. He has about 95% improvement this visit. He can stop using the ciclopirox. Aseptic debridement of toenails x 10 with wiping cloth cutter and curette, pt tolerated well. Discussed with the patient that routine nail care services are only covered by insurance every 60 days. Pt understands that if they would like to return prior to this time frame, they may have to pay out of pocket. 10/04/2024 Pain in left toe(s) (ICD-10 - M79.675) 10/04/2024 Pain in right toe(s) (ICD-10 - M79.674) Plan Of Treatment Next Appt Details Follow Up: 3 Months, Reason: Provider Name:ALEKSANDRA BECKER, 01/07/2025 01:00:00 PM, [address] [address], [place], [address], Progress Notes * Jesus MORENODOB:1955 (69 yo M)Acc No.[id number]:10/04/2024 Progress Note Patient:?Jesus MORENO Provider:?Aleksandra Becker DPM :1955???Age:69 Y???Sex:Male Eleazar e:10/04/2024 Address:[address] [place] [address], [facility] [address], [id number] Pcp:Rivka Nguyen Subjective: * Chief Complaints: * ???3 month diabetic check * HPI: ???Constitutional:?This 69 y/o male returns to my office for a diabetic foot evaluation. He tries to go on a walk at least once a day. He states there is an occasional sensation under the left foot where he will feel like something is stuck under there, but when he checks there is nothing on the foot. He also can see his veins more around his ankles. There is no swelling and no pain. He states the toenails are tender this visit, especially in the corners. He has been using the ciclopirox for the toenails with improvement. He has no other foot complaints this visit. His last HgBA1c was 6.7. His last visit with his PCP care team Dr. Nguyen for diabetes management 08/26/2024. Allergies and medical history reviewed. * ROS:?GENERAL: [...] History:?former smoker, quit 1969 Alcohol: occasional. * Medications:?TakingBetametha sone Dipropionate 0.05 % Cream 1 application Externally Once a day Rosuvastatin Calcium Losartan Potassium , Notes to Pharmacist: 1 tab dailyAmbien , Notes to Pharmacist: 1 tab at nightAspir-81 , Notes to Pharmacist: dailyOmeprazole 20 MG Capsule Delayed Release 1 capsule 30 minutes before morning meal Orally Once a day , Notes to Pharmacist: 1 cap dailymetFORMIN HCl 1000 MG Tablet 1 tablet with a meal Orally bid Taking Betamethasone Dipropionate 0.05 % Cream 1 application Externally Once a day Taking Rosuvastatin Calcium Taking Losartan Potassium , [...] 1 tablet with a meal Orally bid Not-TakingTriamcinolone Acetonide 0.5 % Cream 1 application Externally as directed Zoloft , Notes to Pharmacist: 1 tab prnSimvastatin , Notes to Pharmacist: 1 tab at nightMedication List reviewed and reconciled with the patientNot-Taking Triamcinolone Acetonide 0.5 % Cream 1 application Externally as directed Not-Taking Zoloft , Notes to Pharmacist: 1 tab prnNot-Taking Simvastatin , Notes to Pharmacist: 1 tab at nightMedication List reviewed and reconciled with the patient * Allergies:?Dust MitesGayle niec[Allergies Verified] Objective: * Vitals:?Wt:174.0lbs, Ht: 5ft 8in, BMI:26.45Index, HR:94/min, Temp:96.9F, RR:12/min, Ht-cm: 172.72, Wt-k.93 kg. * Examination: ???General Examination: ???GENERAL: AAO x 3 in NAD VASCULAR: Dorsalis pedis pulses are 2/4 bilaterally and Posterior tibial pulses are 1/4 bilaterally. Capillary filling time within normal limits the digits. No pallor on elevation or rubor on dependency. No hair growth. Varicosities of the medial ankle bilaterally. Denies rest pain or claudication pain. NEUROLOGICAL: Sharp/dull sensation intact, protective sensation intact 10/10 with [place] isabel bilaterally, vibratory sensation with tuning fork diminished to the tibial tuberosity. ORTHOPEDIC: Good muscle strength 4+/5 of all flexors and extensors. Dorsi flexion of ankle ,10 degrees, plantar flexion WNL. No muscle atrophy. DERMATOLOGICAL:Hemosiderin deposits of the toes and the dorsal foot bilaterally. Normal skin temperature, normal skin turgor. 4mm thickened, mycotic, dystrophic, yellowed toenails of all ten toes bilaterally with subungual debris and tenderness on palpation.? BIOMECHANICS: STJ ROM WNL, MTJ ROM WNL, 1st MPJ ROM limited. On weight bearing, pes planovalgus deformity. 4 degrees of calcaneal valgus left foot. Mild weakness of the tibialis posterior tendon of the right foot. Flexible pes planus deformity. Pronation on ambulation. SHOES:slide on shoes. Assessment: * Assessment: 1.?Type 2 diabetes mellitus [...] He has about 95% improvement this visit. He can stop using the ciclopirox. Aseptic debridement of toenails x 10 with wiping cloth cutter and curette, pt tolerated well. Discussed with the patient that routine nail care services are only covered by insurance every 60 days. Pt understands that if they would like to return prior to this time frame, they may have to pay out of pocket.?? * Procedure Codes:?83013 DEBRI DE NAIL, 6 OR MORE, Modifiers: Q9 * Follow Up:?3 Months * Billing Information: * Visit Code:? 82697 Office Visit, Est Pt., Level 2. Modifiers: 25 * Procedure Codes:? 85800 DEBRIDE NAIL, 6 OR MORE. Modifiers: Q9 * Sign off status: Completed true * Provider:Isaac Becker DPM Date:? 10/04/2024 Generated for Chantell soto/Mark/Daviditting on:?11/22/2024 01:13 PM EDT History and Physical Notes * HPI (History of Present Illness) Category Sub-Category Detail Notes Category Not es Constitutional This 69 y/o m benton returns to my office for a diabetic foot evaluation. He tries to go on a walk at least once a day. He states there is an occasional sensation under the left foot where he will feel like something is stuck under there, but when he checks there is nothing on the foot. He also can see his veins more around his ankles. There is no swelling and no pain. He states the toenails are tender this visit, especially in the corners. He has been using the ciclopirox for the toenails with improvement. He has no other foot complaints this visit. His last HgBA1c was 6.7. His last visit with his PCP care team Dr. Nguyen for diabetes management 08/26/2024. Allergies and medical history reviewed. Examination Category Sub-Category Detail Notes Category Not es General Examination GENERAL: AAO x 3 in NAD VASCULAR: Dorsalis pedis pulses are 2/4 bilaterally and Posterior tibial pulses are 1/4 bilaterally. Capillary filling time within normal limits the digits. No pallor on elevation or rubor on dependency. No hair growth. Varicosities of the medial ankle bilaterally. Denies rest pain or claudication pain. NEUROLOGICAL: Sharp/dull sensation intact, protective sensation intact 10/10 with [place] isabel bilaterally, vibratory sensation with tuning fork diminished to the tibial tuberosity. ORTHOPEDIC: Good muscle strength 4+/5 of all flexors and extensors. Dorsi flexion of ankle ,10 degrees, plantar flexion WNL. No muscle atrophy. DERMATOLOGICAL:Hemosiderin deposits of the toes and the dorsal foot bilaterally. Normal skin temperature, normal skin turgor. 4mm thickened, mycotic, dystrophic, yellowed toenails of all ten toes bilaterally with subungual debris and tenderness on palpation. BIOMECHANICS: STJ ROM WNL, MTJ ROM WNL, 1st MPJ ROM limited. On weight bearing, pes planovalgus deformity. 4 degrees of calcaneal valgus left foot. Mild weakness of the tibialis posterior tendon of the right foot. Flexible pes planus deformity. Pronation on ambulation. SHOES:slide on shoes
--- OUTSIDE RECORDS SUMMARY | 2024-11-22 13:13 | XMS_ITS | Patient Health Record ---
Author Organization [facility] Address [address] [facility] [address] [place] [address] Care Team Providers Care Party Planner Name Role Phone Rivka Nguyen Primary Care Provider BALDO Rodriguez Unavailable [phone] Allergies Allergen (clinical drug ingredient) Drug/Non Drug Allergy documented on EMR Reaction Allergy Type Onset Date Status sertraline Zoloft Unknown Drug Allergy Active Dust Mites Unknown Allergy Active Pollen Pollen Unknown Allergy Active Reason For Referral No Information Medications Medication SIG (Take, Route, Frequency, Duration) Notes Start Date End Date Status Betamethasone Dipropionate 0.05 % 1 application Externally Once a day Active Rosuvastatin Calcium Active Triamcinolone Acetonide 0.5 % 1 application Externally as directed Not-Taking metFORMIN HCl 1000 MG 1 tablet with a meal Orally bid Active Omeprazole 20 MG 1 capsule 30 minutes before morning meal Orally Once a day 1 cap daily Active Simvastatin 1 tab at night Not-Taking Zoloft 1 tab prn Not-Taking Losartan Potassium 1 tab daily Active Aspir-81 daily Active Ambien 1 tab at night Active Problems Problem Type SNOMED Code ICD Code Onset Dates Problem Status W/U Status Risk Notes Problem 553369869215885 Flat foot [pes planus] (acquired), left foot (M21.42) Active confirmed Problem 61494804 Type 2 diabetes mellitus with diabetic polyneuropath y, without long-term current use of insulin (E11.42) Active confirmed Vital Signs Heart Rate 94 /min 10/04/2024 Temperature 96.9 degrees Fahrenheit 10/04/2024 Respiratory Rate 12 /min 10/04/2024 Height 5ft 8in in 10/04/2024 Weight 174.0 lbs 10/04/2024 BMI 26.45 kg/m2 10/04/2024 Encounters Encounter Location Date Provider Diagnosis [facility] [address] [address] 12/15/2023 BALDO BELLA Type 2 diabetes mellitus with diabetic polyneuropathy, without long-term current use of insulin E11.42 ; Onychomycosis B35.1 ; Pain in left toe(s) M79.675 and Pain in right toe(s) M79.674 [facility] [address] [address] 03/17/2024 BALDO BELLA Type 2 diabetes mellitus with diabetic polyneuropathy, without long-term current use of insulin E11.42 ; Onychomycosis B35.1 ; Pain in left toe(s) M79.675 and Pain in right toe(s) M79.674 [facility] [address] [address] 07/05/2024 BALDO BELLA Type 2 diabetes mellitus with diabetic polyneuropathy, without long-term current use of insulin E11.42 ; Onychomycosis B35.1 ; Pain in left toe(s) M79.675 and Pain in right toe(s) M79.674 [facility] [address] [address] 10/04/2024 BALDO BELLA Type 2 diabetes mellitus with diabetic polyneuropathy, without long-term current use of insulin E11.42 ; Onychomycosis B35.1 ; Pain in left toe(s) M79.675 and Pain in right toe(s) M79.674 Assessments Encounter Date Diagnosis (ICD Code) Assessment Notes Treatment Notes Treatment Clinical Notes Section Notes 12/15/2023 Type 2 diabetes mellitus with diabetic polyneuropathy, [...] He is in agreement with this plan. 03/17/2024 Type 2 diabetes mellitus with diabetic polyneuropathy, [...] is in agreement with this plan. 07/05/2024 Type 2 diabetes mellitus with diabetic [...] is in agreement with this plan. 10/04/2024 Type 2 diabetes mellitus with diabetic [...] Aseptic debridement of toenails x 10 with nail maker and curette, pt tolerated well. Discussed with the patient that routine nail care services are only covered by insurance every 60 days. Pt understands that if they would like to return prior to this time frame, they may have to pay out of pocket. 07/05/2024 Onychomycosis (ICD-10 - B35.1) I reviewed with the patient various treatment methods for toenail fungus including topical, oral, laser, and removal of the infected toenails. He would like to continue current treatment course. He has about 95% improvement this visit. Rx written for Ciclopirox to apply to each affected toenail daily. Aseptic debridement of toenails x 10 with nail maker and curette, pt tolerated well. Discussed with the patient that routine nail care services are only covered by insurance every 60 days. Pt understands that if they would like to return prior to this time frame, they may have to pay out of pocket. 03/17/2024 Onychomycosis (ICD-10 - B35.1) I reviewed with the patient various treatment methods for toenail fungus including topical, oral, laser, and removal of the infected toenails. He would like to continue current treatment course. He has about 95% improvement this visit. Rx written for Ciclopirox to apply to each affected toenail daily. Aseptic debridement of toenails x 10 with nail maker and curette, pt tolerated well. Discussed with the patient that routine nail care services are only covered by insurance every 60 days. Pt understands that if they would like to return prior to this time frame, they may have to pay out of pocket. 12/15/2023 Onychomycosis (ICD-10 - B35.1) I reviewed with the patient various treatment methods for toenail fungus including topical, oral, laser, and removal of the infected toenails. He would like to continue current treatment course. He has about 95% improvement this visit. Rx written for Ciclopirox to apply to each affected toenail daily. Aseptic debridement of toenails x 10 with nail maker and curette, pt tolerated well. Discussed with the patient that routine nail care services are only covered by insurance every 60 days. Pt understands that if they would like to return prior to this time frame, they may have to pay out of pocket. 12/15/2023 Pain in left toe(s) (ICD-10 - M79.675) 03/17/2024 Pain in left toe(s) (ICD-10 - M79.675) 07/05/2024 Pain in left toe(s) (ICD-10 - M79.675) 10/04/2024 Pain in left toe(s) (ICD-10 - M79.675) 10/04/2024 Pain in right toe(s) (ICD-10 - M79.674) 07/05/2024 Pain in right toe(s) (ICD-10 - M79.674) 03/17/2024 Pain in right toe(s) (ICD-10 - M79.674) 12/15/2023 Pain in right toe(s) (ICD-10 - M79.674) Plan Of Treatment Next Appt Details Provider Name:BALDO BELLA, 01/07/2025 01:00:00 PM, [address] [facility] [address], [place], [address], Insurance Providers Payer Name Payer Address Payer Phone Subscriber Number Group Number Insured Name Patient Relationship to Insured Coverage Start Date Coverage End Date [employer] care medicare community plan [address] [address] [place] [phone] [id number] Jesus Calix Self - patient is the insured Medical (General) History Medical History History ICD Code CAD diabetes mellitus 2 with neuropathy diabetes mellitus 2 with PAD hypertension hyperlipidemia bilateral inguinal hernia GERD basal cell carcinoma iron deficiency anemia erectile dysfunction familial tremor lumbar spinal stenosis asthma + COVID Surgical History Surgery Date(Month/Year) colonoscopy cataract removal bilateral hernia repair Hospitalization History Reason Date(Month/Year) cellulitis on the arms X 4 days 06/2024 + COVID 07/2021
--- OUTSIDE RECORDS SUMMARY | 2024-11-22 13:13 | XMS_ITS | Encounter Summary ---
Author Organization [employer] [facility] Address [address] [place] [address] [address] [place] [address] Care Team Providers Care Clerical Aide Teacher Name Role Phone Unavailable Primary Care Provider Unavailabl e Encounter Details Date Type Department Care Team (Latest Contact Info) Description 09/30/2018 Abstract [facility] CONVERSIONS Dental, Provider, DDS Social History Tobacco [...]
--- OUTSIDE RECORDS SUMMARY | 2024-11-22 13:13 | XMS_ITS | Encounter Summary ---
Author Organization [employer] [facility] Address [address] [place] [address] [address] [place] [address] Care Team Providers Care Patient Relations Manager Name Role Phone Unavailable Primary Care Provider Unavailabl e Encounter Details Date Type Department Care Team (Latest Contact Info) Description 06/03/2019 Abstract [facility] CONVERSIONS Dental, Provider, DDS Social History Tobacco [...]
--- OUTSIDE RECORDS SUMMARY | 2024-11-22 13:13 | XMS_ITS ---
Author Organization [facility] Address [address] [facility] [address] [place] [address] Care Team Providers Care Novelty Worker Name Role Phone Rivka Nguyen Primary Care Provider ALEKSANDRA Rodriguez [phone] Allergies Allergen (clinical drug ingredient) Drug/Non Drug Allergy documented on EMR Reaction Allergy Type Onset Date Status sertraline Zoloft Unknown Drug Allergy Active Dust Mites Unknown Allergy Active Pollen Pollen Unknown Allergy Active REASON FOR VISIT 3 month diabetic check Medications Medication SIG (Take, Route, Frequency, Duration) Notes Start Date End Date Status Omeprazole 20 MG 1 capsule 30 minutes before morning meal Orally Once a day 1 cap daily Active metFORMIN HCl 1000 MG 1 tablet with a meal Orally bid Active Aspir-81 daily Active Zoloft 1 tab prn Not-Taking Simvastatin 1 tab at night Not -Taking Rosuvastatin Calcium Active Losartan Potassium 1 tab daily Active Ambien 1 tab at night Activ e Vital Signs Height 5ft8in in 03/17/2024 Weight 180.3 lbs 03/17/2024 BMI 27.41 kg/m2 03/17/2024 Encounters Encounter Location Date Provider Diagnosis [facility] [address] [facility] [address] [place] [address] 03/17/2024 ALEKSANDRA BECKER Type 2 diabetes mellitus with diabetic polyneuropathy, without long-term current use of insulin E11.42 ; Onychomycosis B35.1 ; Pain in left toe(s) M79.675 and Pain in right toe(s) M79.674 Assessments Encounter Date Diagnosis (ICD Code) Assessment Notes Treatment Notes Treatment Clinical Notes Section Notes 03/17/2024 Type 2 diabetes mellitus with diabetic [...] is in agreement with this plan. 03/17/2024 Onychomycosis (ICD-10 - B35.1) I reviewed with the patient various treatment methods for toenail fungus including topical, oral, laser, and removal of the infected toenails. He would like to continue current treatment course. He has about 95% improvement this visit. Rx written for Ciclopirox to apply to each affected toenail daily. Aseptic debridement of toenails x 10 with nail technician and curette, pt tolerated well. Discussed with the patient that routine nail care services are only covered by insurance every 60 days. Pt understands that if they would like to return prior to this time frame, they may have to pay out of pocket. 03/17/2024 Pain in left toe(s) (ICD-10 - M79.675) 03/17/2024 Pain in right toe(s) (ICD-10 - M79.674) Plan Of Treatment Next Appt Details Follow Up: 3 Months, Reason: Provider Name:ALEKSANDRA BECKER, 01/07/2025 01:00:00 PM, [address] [facility], [facility] [address], [place], [address], Progress Notes * JOSHJesus ANDERSONDOB:1955 (68 yo M)Acc No.[id number]:03/17/2024 Progress Note Patient:?Jesus MORENO Provider:?Aleksandra Becker DPM :1955???Age:68 Y???Sex:Male Eleazar e:03/17/2024 Address:[address] [facility], [facility] [address], [place], [id number] Pcp:Rivka Nguyen Subjective: * Chief Complaints: * ???3 month diabetic check * HPI: ???Constitutional:? This 68 y/o male returns to my office for a diabetic foot evaluation. He went on a trip to [place] since his last visit to see family. He tries to go on a walk [...] team Dr. Nguyen for diabetes management was 01/01/2024. Allergies and medical history reviewed. * ROS:?GENERAL: [...] repair * Hospitalization/Major Diagno stic Procedure:?+ COVID 07/2021 * Family History:?Father: dece ased, pneumonia.?Mother: , diabetes mellitus, heart failure.?Maternal Grand Mother: , alzheimer's dementia.? * Social History:?former smoker, quit 1969 Alcohol: occasional. * Medications:?TakingRosuvasta tin Calcium Losartan Potassium , Notes to Pharmacist: 1 tab dailyAmbien , Notes to Pharmacist: 1 tab at nightAspir-81 , Notes to Pharmacist: dailyOmeprazole 20 MG Capsule Delayed Release 1 capsule 30 minutes before morning meal Orally Once a day , Notes to Pharmacist: 1 cap dailymetFORMIN HCl 1000 MG Tablet 1 tablet with a meal Orally bid Taking Rosuvastatin Calcium Taking Losartan Potassium , [...] * Allergies:?Dust MitesGayle nice[Allergies Verified] Objective: * Vitals:?Wt:180.3lbs, Ht: 5ft 8in, BMI:27.41Index, Ht-cm: 172.72, Wt-k.78 kg. * Examination: ???General Examination: ???GENERAL: AAO x 3 in NAD ?VASCULAR: Dorsalis pedis pulses are 1/4 bilaterally and Posterior tibial pulses are 1/4 bilaterally. Capillary filling time within normal limits the digits. No pallor on elevation or rubor on dependency. No hair growth. No varicosities. Denies rest pain or claudication pain. ?NEUROLOGICAL: Sharp/dull sensation intact, protective sensation intact 10/10 with Mcdermitt isabel bilaterally, vibratory sensation with tuning fork diminished to the tibial tuberosity. ?ORTHOPEDIC: Good muscle strength 4+/5 of all flexors and extensors. Dorsi flexion of ankle ,10 degrees, plantar flexion WNL. No muscle atrophy. ?DERMATOLOGICAL:.Hemosiderin deposits of the toes and the dorsal foot bilaterally. Normal skin temperature, normal skin turgor. 4mm Thickened yellowed toenails hallux, and 2nd toenails bilaterally with subungual debris and 95% proximal clearance. ?BIOMECHANICS: STJ ROM WNL, MTJ ROM WNL, 1st MPJ ROM limited. On weight bearing, pes planovalgus deformity. 4 degrees of calcaneal valgus left foot. Mild weakness of the tibialis posterior tendon of the right foot. Flexible pes planus deformity. Pronation on ambulation. ?SHOES:sneakers with Custom orthotics. Assessment: * Assessment: 1.?Type 2 diabetes mellitus with diabetic polyneuropathy, without long-term current use of insulin - E11.42?2.?Onychomycosis - B35.1?3.?Pain in left toe(s) - M79.675?4.?Pain in right toe(s) - M79.674? Plan: * Treatment: 2.?Onychomycosis? Clinical Notes: I reviewed with the patient various treatment methods for toenail fungus including topical, oral, laser, and removal of the infected toenails. He would like to continue current treatment course. He has about 95% improvement this visit. Rx written for Ciclopirox to apply to each affected toenail daily. Aseptic debridement of toenails x 10 with nail technician and curette, pt tolerated well. Discussed with the patient that routine nail care services are only covered by insurance every 60 days. Pt understands that if they would like to return prior to this time frame, they may have to pay out of pocket.?? * Procedure Codes:?45863 DEBRI DE NAIL, 6 OR MORE, Modifiers: Q9 * Follow Up:?3 Months * Billing Information: * Visit Code:? 26135 Office Visit, Est Pt., Level 2. Modifiers: 25 * Procedure Codes:? 21400 DEBRIDE NAIL, 6 OR MORE. Modifiers: Q9 * Sign off status: Completed true * Provider:?Aleksandra Becker DPM Date:? 03/17/2024 Generated for Chantell soto/Mark/Shamir on:?11/22/2024 01:12 PM EDT History and Physical Notes * HPI (History of Present Illness) Category Sub-Category Detail Notes Category Not es Constitutional This 68 y/o m benton returns to my office for a diabetic foot evaluation. He went on a trip to [place] since his last visit to see family. He tries to go on a walk [...] team Dr. Nguyen for diabetes management was 01/01/2024. Allergies and medical history reviewed. Examination Category [...] sensation intact, protective sensation intact 10/10 with Mcdermitt isabel bilaterally, vibratory sensation with tuning fork [...]
--- OUTSIDE RECORDS SUMMARY | 2024-11-22 13:14 | XMS_ITS | Clinical Summary ---
Author Organization [employer] Address [address] [facility] [address] [place] [address] Care Team Providers Care Merchandising Specialist Name Role Phone Unavailable Primary Care Provider Unavailabl e Allergies Active Allergy Reactions Criticality Noted Date Comments Dust Mite Extract Wheezing Medium 08/09/2011 Other Reaction(s): ASTHMA Pollen Extract 12/21/2012 pollen Sertraline Diarrhea,Nausea 09/16/2012 Medications albuterol (2.5 MG/3ML) 0.083% nebulizer solution Inhale 2.5 mg. 2 Active aspirin 81 MG EC tablet Take 1 tablet by mouth in the morning. 3 Active Blood Glucose Monitoring Suppl (J[employer]uwe[employer]ang Verio Flex System) w/Device kit USE TWICE A DAY. NEED CORRECT INSURANCE 2 Active budesonide (Pulmicort) 0.25 MG/2ML nebulizer solution Active Tiadylt ER 240 MG 24 hr capsule Take 240 mg by mouth in the morning. 2 Active Trulicity 3 MG/0.5ML solution pen-injector INJECT 3 MG INTO THE SKIN ONCE A WEEK. 2 Active Jardiance 25 MG Take 25 mg by mouth in the morning. 2 Active fluticasone (Flonase) 50 MCG/ACT nasal spray SPRAY 1 SPRAY BY NASAL ROUTE EVERY DAY 2 Active losartan (Cozaar) 25 MG tablet Take 25 mg by mouth in the morning. 2 Active metFORMIN, OSM, (Fortamet) 1000 MG 24 hr tablet Take 1,000 mg by mouth. 2 Active nitroglycerin (Nitrostat) 0.[address] 0.4 mg under the tongue. 3 Active omeprazole (PriLOSEC) [address] capsule Take 20 mg by mouth in the morning. 2 Active primidone (Mysoline) 50 MG tablet Take 50 mg by mouth 2 times daily. 2 Active propranolol (Inderal) 60 MG tablet Take 1 tablet by mouth every 12 (twelve) hours. Active rosuvastatin (Crestor) 10 MG tablet Take 1 tablet by mouth in the morning. 2 Active valsartan (Diovan) 40 MG tablet Take 40 mg by mouth in the morning. 2 Active zolpidem (Ambien) 10 MG tablet TAKE 1 TABLET BY MOUTH ONCE DAILY AT BEDTIME ORALLY ONCE A DAY 90 DAYS 2 Active isosorbide mononitrate ER (Imdur) 120 MG 24 hr tablet Take 120 mg by mouth Once per day. Active baclofen (Lioresal) 10 MG tablet Take 10 mg by mouth 3 times daily. 4 Active Wixela Inhub 250-50 MCG/ACT aerosol powder INHALE 1 PUFF BY MOUTH 2 (TWO) TIMES A DAY 5 Active hydrOXYzine pamoate (Vistaril) 25 MG capsule Take 25 mg by mouth if needed in the morning, at noon, and at bedtime. 5 Active acetaminophen (Tylenol) 500 MG tablet Take 1 tablet (500 mg) by mouth every 6 (six) hours if needed for mild pain for up to 20 doses. 20 tablet 5 Active Active Problems No known active problems Encounters Date Type Department Care Team Description 09/15/2024 10:00 AM EST Office Visit [facility] [address] [place] [address] Yissel Newman DMD 09/14/2024 2:00 PM EST Office Visit [facility] [address] [place] [address] Endy Moffett Dental calculus (Primary Dx) from Last 3 Months Social History Tobacco Use Types Packs/Day Years Used Date Smoking Tobacco: Never Smokeless Tobacco: Never Tobacco Cessation:Counseling Given: Not Answered Alcohol Use Standard Drinks/Week Comments Defer 0 (1 standard drink = 0.6 oz pur e alcohol) Sex and Gender Information Value Date Recorded Sex Assigned at Male 05/13/2022 10:25 AM EDT Legal Sex Male 10:25 AM EDT Gender Identity Male 05/13/2022 10:25 AM EDT Sexual Orientation Straight 05/13/2022 10 :25 AM EDT Last Filed Vital Signs Vital Sign Reading Time Taken Comments Blood Pressure 138/78 09/15/2024 10:59 AM EST Pulse 65 09/14/2024 1:49 PM EST Temperature - - Respiratory Rate - - Oxygen Saturation - - Inhaled Oxygen Concentration - - Weight - - Height - - Body Mass Index - - Plan of Treatment Health Maintenance Due Date Last Done Comments CT Colonography 1953 Depression Screening 1955 FIT DNA/Cologuard 1955 FIT 1955 FOBT 1955 Lipid Panel 1955 SDOH Screening 1955 Sigmoidoscopy 1955 Alcohol/Substance Use Screening 1965 Hepatitis C Screening 1971 RSV Patients and Patients Aged 60 years or older (1 - Risk 60-74 years 1-dose series) 2013 Dental Oral Exam 03/18/2025 09/14/2024, , 07/25/2022 Dental Prophylaxis 03/18/2025 09/14/2024, 12/26/2023 Dental X-Ray: Bitewings 09/15/2025 09/15/19, 12/26/2023, 07/25/2022 Tobacco Screening 09/15/2025 09/15/2024 Dental X-Ray: Full Mouth 12/26/2026 12/26/2023 DTaP/Tdap/Td Vaccines (3 - Td or Tdap) 03/25/2032 03/25/2022, 03/04/2012 Colonoscopy 09/16/2034 09/16/2024 Colorectal Cancer Screening 09/16/2034 Pneumococcal Vaccine: 50+ Years Completed 04/19/2020, 11/30/2018, 03/04/2012 Zoster Vaccines Completed 03/21/2023, 08/14, 06/08/2014 COVID-19 Vaccine Completed 03/12/2024, , 05/09/2023, Additional history exists Influenza Vaccine Completed 03/12/2024, , 03/25/2022, Additional history exists HIB Vaccines Aged Out No longer eligi [...] patient's age to complete this topic Meningococcal Vaccine Aged Out No emery joseph eligible based on patient's age to complete this topic RSV under 20 months Aged Out No longe r eligible based on patient's age to complete this topic Rotavirus Vaccines Aged Out No longer eligible based on patient's age to complete this topic Procedures Procedure Name Priority Date/Time Associated Diagnosis Comments CASE PRESENTATION, DETAILED AND EXTENSIVE TREATMENT PLANNING Routine 09/15/2024 10:00 AM EST 2 EXTRACTION, ERUPTED TOOTH OR EXPOSED ROOT (ELEVATION/FORCEPS REMOVAL) Routine 09/15/2024 10:00 AM EST PERIODIC ORAL EVALUATION - ESTABLISHED PATIENT Routine 09/14/2024 2:00 PM EST INTRAORAL - PERIAPICAL FIRST RADIOGRAPHIC IMAGE Routine 09/14/2024 2:00 PM EST BITEWING - SINGLE RADIOGRAPHIC IMAGE Routine 09/14/2024 2:00 PM EST ORAL HYGIENE INSTRUCTIONS Routine 2024 2:00 PM EST PROPHYLAXIS - ADULT Routine 09/14/2024 2 :00 PM EST INTRAORAL - COMPLETE SERIES OF RADIOGRAPHIC IMAGES Routine 12/26/2023 3:00 PM EDT from Last 3 Months or Most Recently Relevant to Health Maintenance Insurance DENTAL - [facility]
--- NOTE | 2024-11-22 13:27 | MHC.OFFWIV ---
Intake Vital Signs 11/22/24 13:30 Weight 164 lb 2 oz BP 110/76 Blood Pressure Location Lt brachial Position Sitting Pulse 92 Pulse Source Pulse Oximeter Temp 98.5 F Temp Source Oral Pulse Oximetry (%) 95 Oxygen Delivery Method Room Air Intake Visit Reasons: EP-cough, phlem Intake Note: Patient here for cough, SOB, chest congestion and headaches that has been present for about 3-4 days. Patient Tobacco Use Status: Former Tobacco user Allergies No Known Allergies Allergy (Verified 11/22/24 13:31) Do you need a note to return to daycare/school/sports/work: No HPI HPI Comments History of Present Illness Details 69 y/o Male patient who presents to the walk in clinic with c/o cough, SOB, chest congestion and headaches that has been present for about 3-4 days. He has NOT taken any OTC remedies. Denies any recent sick contact. [facility] Medical History (Updated 11/22/24 @ 14:08 by Fatuma Leyva NP) Cough Acute respiratory disease Social History Patient Tobacco Use Status: Former Tobacco user Review of Systems Const All systems reviewed & are unremarkable except as noted in HPI and below Physical Exam Vital Signs: Last Vital Signs Temp 98.5 F 11/22/24 13:30 Pulse 92 11/22/24 13:30 BP 110/76 11/22/24 13:30 Pulse Ox 95 11/22/24 13:30 Oxygen Delivery Method Room Air 11/22/24 13:30 Const General: no acute distress Orientation/consciousness: patient oriented x3 HEENT Head: Yes normocephalic Ears: external ears normal and TM abnormal with fluid behind the TM General nose exam: Normal nasal mucous membranes and turbinates present Face and sinus: Yes sinuses nontender Mouth: moist mucous membranes Throat: Yes uvula midline Resp Effort & Inspection: normal respiratory effort and able to speak in complete sentences Auscultation: clear to auscultation bilaterally, no crackles, no rales, no rhonchi and no wheezes Cardio Heart sounds: S1 normal heart sound present and S2 normal heart sound present Neuro General: patient oriented x3 Assessment & Plan Assessment & Plan (1) Acute respiratory disease: Code(s): J06.9 - Acute upper respiratory infection, unspecified Plan: OTC cough/flu remedies. Rest and hydrate well with warm fluids. Acetaminophen for pain relief. (2) Cough: Code(s): R05.9 - Cough, unspecified Qualifiers: Cough type: acute Qualified Code(s): R05.1 - Acute cough Plan: OTC cough/flu remedies. Rest and hydrate well with warm fluids. Acetaminophen for pain relief. Medications: New benzonatate 200 mg (2 x 100 mg) PO BID 60 caps 0RF R05.1 - Acute cough dextromethorphan polistirex ER ([facility] 12 hour) 10 mL PO Q12H 89 mL 0RF cough J06.9 - Acute upper respiratory infection, unspecified Coding Level of Care Code Est Pt Level 4 (45380) Diagnoses Acute respiratory disease J06.9 Acute cough R05.1 Cough type: acute Time Spent (min) 20
[2024-11-22 13:30] VITALS: BP 110/76; PULSE 92; TEMP 36.9; O2SAT 95
== END 2024-11-22 14:33 | disposition home or self-care (01) ==
PROVIDERS: Visit Provider Nurse Practitioner Family
DX: J06.9 Acute upper respiratory infection, unspecified (principal); R05.1 Acute cough

== ENCOUNTER → 2024-11-22 12:55 | Outpatient (BNVA) | payer MEDICARE, SELFPAY | PROVIDERS: Visit Provider Nurse Practitioner Family | DX: J06.9 Acute upper respiratory infection, unspecified (principal); R05.1 Acute cough | CPT/HCPCS: 99212 ==

== ENCOUNTER 2025-07-08 09:27 | Outpatient (AMB) | payer MEDICARE, MEDICAID, SELFPAY ==
--- OUTSIDE RECORDS SUMMARY | 2025-07-08 09:28 | XMS_ITS | Encounter Summary ---
Author Organization [employer] [facility] Address [address] [place] [address] [address] [place] [address] Care Team Providers Care Community Outreach Director Name Role Phone Unavailable Primary Care Provider Unavailabl e Encounter Details Date Type Department Care Team (Latest Contact Info) Description 06/03/2019 Abstract [facility] CONVERSIONS Dental, Provider, DDS Social History Tobacco Use Types Packs/Day Years Used Date Smoking Tobacco: Never Assessed Sex and Gender Information Value Date Recorded Sex Assigned at Male 05/13/2022 10:25 AM EDT Legal Sex Male 10:25 AM EDT Gender Identity Male 05/13/2022 10:25 AM EDT Sexual Orientation Straight 05/13/2022 10 :25 AM EDT documented as of this encounter Plan of Treatment Upcoming Encounters Date Type Department Care Team (Late st Contact Info) Description 08/16/2025 2:15 PM EST Office Visit [facility] CHC ADULT DENTAL [address] [place] [address] Melani Nagy documented as of this encounter Visit Diagnoses Not on filedocumented in this encounter
--- OUTSIDE RECORDS SUMMARY | 2025-07-08 09:28 | XMS_ITS | Encounter Summary ---
Author Organization [employer] [facility] Address [address] [place] [address] 7 [place] [address] Care Team Providers Care Binder And Wrapper Packer Name Role Phone Unavailable Primary Care Provider Unavailabl e Encounter Details Date Type Department Care Team (Latest Contact Info) Description 09/30/[address] [facility] CONVERSIONS Dental, Provider, DDS Social History [...] Description 08/16/2025 2:15 PM EST Office Visit [facility] CHC ADULT DENTAL [address] [place] [address] Melani Nagy documented as of this encounter Visit Diagnoses Not on filedocumented in this encounter
--- OUTSIDE RECORDS SUMMARY | 2025-07-08 09:28 | XMS_ITS | Encounter Summary ---
Author Organization [employer] [facility] Address [address] [place] [address] [address] [place] [address] Care Team Providers Care Hob Mill Operator Name Role Phone Unavailable Primary Care Provider Unavailabl e Encounter Details Date Type Department Care Team (Latest Contact Info) Description 09/18/[address] [facility] CONVERSIONS Dental, Provider, DDS Social History [...] Description 08/16/2025 2:15 PM EST Office Visit [facility] CHC ADULT DENTAL [address] [place] [address] Melani Nagy documented as of this encounter Visit Diagnoses Not on filedocumented in this encounter
--- OUTSIDE RECORDS SUMMARY | 2025-07-08 09:28 | XMS_ITS | Clinical Summary ---
Author Organization [employer] Address [address] [facility] [address] [place] [address] Care Team Providers Care Tear Down Man Name Role Phone Unavailable Primary Care Provider [...] morning. 3 Active Blood Glucose Monitoring Suppl ([employer] [place] Verio Flex System) w/Device kit USE TWICE [...] Active Active Problems No known active problems Social History Tobacco Use Types Packs/Day Years [...] Sign Reading Time Taken Comments Blood Pressure 90/60 01/27/2025 2:21 PM EDT Pulse 65 09/14/2024 1:49 PM EST Temperature - - Respiratory Rate - - Oxygen Saturation - - Inhaled Oxygen Concentration - - Weight - - Height - - Body Mass Index - - Plan of Treatment Upcoming Encounters Date Type Department Care Team (Late st Contact Info) Description 08/16/2025 2:15 PM EST Office Visit [facility] ADULT DENTAL [address] [place] [address] Melani Nagy Health Maintenance Due Date Last Done Comments CT Colonography 1953 Depression Screening 1953 FIT DNA/Cologuard 1953 FIT 1953 FOBT 1953 Lipid Panel 1953 SDOH Screening 1953 Sigmoidoscopy 1953 Alcohol/Substance Use Screening 1965 Hepatitis C Screening 1971 COVID-19 Vaccine (2024- season) 2025 03/12/2024, 10/27/2023, 05/09/2023, Additional history exists Influenza Vaccine (#1) 2025 , 03/21/2023, 03/25/2022, Additional history exists Dental Oral Exam 03/18/2025 09/14/2024, , 07/25/2022 Dental Prophylaxis 08/14/2025 02/10/2025, 0 09/14/2024, 12/26/2023 Tobacco Screening 02/10/2026 02/10/2025 Dental X-Ray: Bitewings 02/11/2026 02/11/20 25, 09/14/2024, 12/26/2023, Additional history exists Dental X-Ray: Full Mouth 02/12/2028 02/10/2025, 12/12 DTaP/Tdap/Td Vaccines (3 - Td or Tdap) 03/25/2032 03/25/2022, 03/04/2012 Colonoscopy 09/16/2034 09/16/2024, 09/16/2024 Colorectal Cancer Screening 09/16/2034 Pneumococcal Vaccine: 50+ Years Completed 04/19/2020, 11/30/2018, 03/04/2012 Zoster Vaccines Completed 03/21/2023, 08/14, 06/08/2014 RSV Patients and Patients Aged 60 years or older Completed 10/27/2023 HIB Vaccines Aged Out No longer eligi [...] Procedure Name Priority Date/Time Associated Diagnosis Comments PROPHYLAXIS - ADULT Routine 02/10/2025 3 :00 PM EDT INTRAORAL - COMPLETE SERIES OF RADIOGRAPHIC IMAGES Routine 02/10/2025 3:00 PM EDT PERIODIC ORAL EVALUATION - ESTABLISHED PATIENT Routine 09/14/2024 2:00 PM EST from Last 3 Months or Most Recently Relevant to Health Maintenance Insurance [id number] [place] [address] [facility]
--- OUTSIDE RECORDS SUMMARY | 2025-07-08 09:28 | XMS_ITS | Encounter Summary ---
Author Organization [employer] [facility] Address [address] [place] [address] [address] [place] [address] Care Team Providers Care Infection Control Rn Name Role Phone Unavailable Primary Care Provider Unavailabl e Encounter Details Date Type Department Care Team (Latest Contact Info) Description 10/24/2020 Abstract [facility] CONVERSIONS Dental, Provider, DDS Social History [...] Description 08/16/2025 2:15 PM EST Office Visit [facility] CHC ADULT DENTAL [address] [place] [address] Melani Nagy documented as of this encounter Visit Diagnoses Not on filedocumented in this encounter
--- OUTSIDE RECORDS SUMMARY | 2025-07-08 09:29 | XMS_ITS | Patient Health Record ---
Author Organization [facility] Address [address] [facility] [address] [place] [address] Care Team Providers Care Brick Pitcher Name Role Phone Rivka Nguyen Primary Care Provider BALDO Rodriguez Unavailable [phone] Allergies Allergen (clinical drug ingredient) Drug/Non Drug Allergy documented on EMR Reaction Allergy Type Onset Date Status sertraline Zoloft Unknown Drug Allergy Active Dust Mites Unknown Allergy Active Pollen Pollen Unknown Allergy Active Reason For Referral No Information Medications Medication SIG (Take, Route, Frequency, Duration) Notes Start Date End Date Status metFORMIN HCl 1000 MG 1 tablet with a meal Orally bid Active Triamcinolone Acetonide 0.5 % 1 application Externally as directed Active Betamethasone Dipropionate 0.05 % 1 application Externally Once a day Not-Taking Losartan Potassium 1 tab daily Active Ambien 1 tab at night Active Aspir-81 daily Active Omeprazole 20 MG 1 capsule 30 minutes before morning meal Orally Once a day 1 cap daily Active Zoloft 1 tab prn Not-Taking Simvastatin 1 tab at night Not-Taking Rosuvastatin Calcium Active Problems Problem Type SNOMED Code ICD Code Onset Dates Problem Status W/U Status Risk Notes Problem Pes planus (27398862) Flat foot [pes planus] (acquired), left foot (M21.42) Active confirmed Problem Polyneuropathy due to type 2 diabetes mellitus (374280684) Type 2 diabetes mellitus with diabetic polyneuropat hy, without long-term current use of insulin (E11.42) Active confirmed Vital Signs Heart Rate 113 /min 04/11/2025 Temperature 97.1 degrees Fahrenheit 04/11/2025 Respiratory Rate 16 /min 04/11/2025 Height 5ft 8in in 04/11/2025 Weight 179.0 lbs 04/11/2025 BMI 27.21 kg/m2 04/11/2025 Encounters Encounter Location Date Provider Diagnosis [facility] [address] [address] 10/04/2024 BALDO BELLA Type 2 diabetes mellitus with diabetic polyneuropathy, without long-term current use of insulin E11.42 ; Onychomycosis B35.1 ; Pain in left toe(s) M79.675 and Pain in right toe(s) M79.674 [facility] [address] [address] 01/07/2025 BALDO BELLA Type 2 diabetes mellitus with diabetic polyneuropathy, without long-term current use of insulin E11.42 ; Onychomycosis B35.1 ; Pain in left toe(s) M79.675 ; Pain in right toe(s) M79.674 and Leg swelling M79.89 [facility] [address] [address] 04/11/2025 BALDO BELLA Type 2 diabetes mellitus with [...] He is in agreement with this plan. 01/07/2025 Type 2 diabetes mellitus with diabetic polyneuropathy, [...] He is in agreement with this plan. 04/11/2025 Type 2 diabetes mellitus with diabetic polyneuropathy, [...] his blood sugar is higher than normal. HIs most hgba1c was 7.8, and we discussed this is why he could be having more neuropathy type sensations. 04/11/2025 Onychomycosis (ICD-10 - B35.1) Aseptic debridement of toenails x 10 with wiping cloth cutter and curette, pt tolerated well. Discussed with the patient that routine nail care services are only covered by insurance every 60 days. Pt understands that if they would like to return prior to this time frame, they may have to pay out of pocket. 01/07/2025 Onychomycosis (ICD-10 - B35.1) I reviewed with [...] have to pay out of pocket. 10/04/2024 Onychomycosis (ICD-10 - B35.1) I reviewed [...] Pain in left toe(s) (ICD-10 - M79.675) 01/07/2025 Pain in left toe(s) (ICD-10 - M79.675) 04/11/2025 Pain in left toe(s) (ICD-10 - M79.675) 04/11/2025 Pain in right toe(s) (ICD-10 - M79.674) 10/04/2024 Pain in right toe(s) (ICD-10 - M79.674) 01/07/2025 Pain in right toe(s) (ICD-10 - M79.674) 01/07/2025 Leg swelling (ICD-10 - M79.89) We discussed this could be due to the heat or diet, but if the swelling does not resolve, I recommended he contact his PCP care team for a work up. He is in agreement with this plan. 04/11/2025 Other Plan Of Treatment Next Appt Details Provider Name:BALDO BELLA, 07/22/2025 01:00:00 PM, [address] [facility] [address], [place], [address], Insurance Providers Payer Name Payer Address Payer Phone Subscriber Number Group Number Insured Name Patient Relationship to Insured Coverage Start Date Coverage End Date [employer] medicare community plan [address] [address] [place] [address] [id number] Jesus Calix Self - patient is the [...]
--- OUTSIDE RECORDS SUMMARY | 2025-07-08 09:29 | XMS_ITS | Clinical Summary ---
Author Organization [facility] Address [address] [place] [address] Phone Care Team Providers [employer] Name Role Phone Rivka Nguyen MD Primary Care Provider [phone] Allergies Active Allergy Reactions Criticality Noted Date Comments Cat Dander Wheezing 08/09/2013 Allergy to cat dander States all Animal dander cats are the worst House Dust Wheezing Medium 08/09/2011 House Dust Mite Unknown 06/20/2024 Mite Extract Wheezing Medium 08/09/2011 Other Reaction(s): ASTHMA Pollen Extracts Unknown 12/21/2012 pollen Sertraline Diarrhea,Unknown 09/16/2012 Other Reaction(s): PER PRE-OP ORDERS Medications isosorbide mononitrate (IMDUR) 120 mg 24 hr tablet TAKE 1 TABLET BY MOUTH EVERY DAY 90 tablet 3 024 Active primidone (MYSOLINE) 50 mg tablet Take 1 tablet (50 mg total) by mouth 2 (two) times a day. Active propranolol LA (INDERAL LA) 80 mg 24 hr capsule Si cap PO QD PRN tremors Active Tiadylt ER 240 mg 24 hr capsule Take 1 capsule (240 mg total) by mouth 1 (one) time each day. 024 Active zolpidem (AMBIEN) 10 mg tablet Take 1 tablet (10 mg total) by mouth at bedtime as needed for sleep. 08/12/2 024 Active baclofen (LIORESAL) 10 mg tablet Take 1 tablet (10 mg total) by mouth 3 (three) times a day. Active nitroglycerin (NITROSTAT) 0.[address] 1 tablet (0.4 mg total) under the tongue every 5 (five) minutes if needed for chest pain. Active aspirin 81 mg EC tablet Take 1 tablet (81 mg total) by mouth 1 (one) time each day. Active fluticasone propionate (FLONASE) 50 mcg/actuation nasal spray Administer 1 spray into each nostril every 12 (twelve) hours. Sig - Route: 1 [place] by Nasal route daily. - Nasal Active lancets (SelStorTOUCH DELICA PLUS LANCET MIS) Sig - Route: Apply 1 Each topically 2 times daily. Active glucose blood test strip Sig: USE TO TEST BLOOD SUGAR TWICE DAILY. Active losartan (COZAAR) 25 mg tablet TAKE 1 TABLET BY MOUTH EVERY DAY 90 tablet 3 025 Active hydrOXYzine pamoate (VISTARIL) 25 mg capsule Take 1 capsule (25 mg total) by mouth 3 (three) times a day if needed for itching. 270 capsule 025 Active omeprazole (PriLOSEC) [address] capsule Take 1 capsule (20 mg total) by mouth 1 (one) time each day. 90 capsule 1 025 Active rosuvastatin (CRESTOR) 10 mg tablet Take 1 tablet (10 mg total) by mouth 1 (one) time each day. 90 tablet 1 Active blood-glucose meter kit Use daily or as directed for monitoring of diabetes. 1 each 025 2025 Active metFORMIN (FORTAMET) 1,000 mg 24 hr tablet Take 1 tablet (1,000 mg total) by mouth 2 (two) times a day with meals. 180 tablet 1 Active ranolazine (Ranexa) 500 mg 12 hr tabletIndicati ons:Chest pain, unspecified type,Coronary artery disease involving makah coronary artery of makah heart without angina pectoris Take 1 tablet (500 mg total) by mouth 2 (two) times a day. Do not crush, chew, or split. 60 each 11 025 2025 Active empagliflozin (Jardiance) 25 mg tablet Take 1 tablet (25 mg total) by mouth 1 (one) time each day. 90 tablet Active albuterol HFA (PROAIR HFA ; PROVENTIL HFA ; VENTOLIN HFA) 90 mcg/actuation inhaler Inhale 2 puffs by mouth every 4 (four) hours if needed for wheezing or shortness of breath ((EMERGENCY USE ONLY).). 8.5 g 025 2025 Active fluticasone-sa lmeterol (Wixela Inhub) 250-50 mcg/dose diskus inhaler Inhale 1 puff by mouth 2 (two) times a day. 180 each Active dulaglutide (Trulicity) 4.5 mg/0.5 mL pen injector injection Inject 0.5 mL (4.5 mg total) under the skin 1 (one) time per week. 6 mL Active ferrous sulfate 325 mg (65 mg iron) EC tablet TAKE 1 TABLET (325 MG TOTAL) BY MOUTH TWICE A DAY WITH MEALS DO NOT CRUSH,CHEW OR SPLIT 180 tablet 1 Active triamcinolone (KENALOG) 0.1 % cream Apply topically 2 (two) times a day. 30 g 024 2024 fluticasone-sa lmeterol (Wixela Inhub) 250-50 mcg/dose diskus inhaler Inhale 1 puff by mouth 2 (two) times a day. 180 each 025 2024 Discontinued Trulicity 4.5 mg/0.5 mL pen injector injection INJECT 0.5 ML (4.5 MG TOTAL) SUBCUTANEOUSLY EVERY 7 DAYS 6 mL 025 2024 Discontinued ferrous sulfate 325 mg (65 mg iron) EC tablet Take 1 tablet (325 mg total) by mouth 2 (two) times a day with meals. Do not crush, chew, or split. 180 each 025 2024 Discontinued Active Problems Problem Noted Date Diagnosed Date Pes planus 03/29/2025 Polyneuropathy due to type 2 diabetes mellitus 0 03/29/2025 Lumbar radiculitis 08/26/2024 Overview (08/26/2024): Dr. Ty SCC (squamous cell carcinoma), arm 04/05/2024 Overview (05/24/2024): 04/06 Stefano ulcer, chronic 09/09/2022 Large hiatal hernia 09/09/2022 Long-segment Grewal's esophagus 09/09/2022 Assessment & Plan (12/08/2024 4:37 PM EDT): Tubular adenoma of colon 09/09/2022 COVID-19 virus infection 07/26/2021 Overview (05/24/2024): 1.7.22 DM (diabetes mellitus), type 2 with renal compli cations 04/15/2020 Assessment & Plan (12/08/2024 4:37 PM EDT): Microalbuminuria 04/15/2020 History of basal cell carcinoma (BCC) of skin Overview (05/24/2024): 12/30left cheek Porokeratosis 09/17/2018 Overview (05/24/2024): Porokeratosis 09/29 right calf (excoriated) Diabetic autonomic neuropath y associated with type 2 diabetes mellitus 09/08/2015 Lumbar spinal stenosis 10/05/2014 Type 2 diabetes mellitus with diabetic cataract 10/05/2014 Iron deficiency anemia 11/09/2013 CAD (coronary [...] fixed unchanged from prior nuclear imaging in 2013. Last Assessment & Plan: Patient Denies any anginal or congestive symptoms. He will continue his current treatment plan with calcium channel maría, long-acting nitrates, aspirin, statin. He is encouraged to increase his exercise for general cardiovascular health. Assessment & Plan (03/30/2025 3:03 PM EDT): With symptoms of chest discomfort which she describes as being reminiscent to those prior to his stenting many years ago. Pain was relieved with 1 sublingual nitroglycerin. Patient will continue on aspirin, statin and beta-maría therapy. He is also on isosorbide. Instructed to call 911 or go to the emergency room should the patient begin to experience chest pain or pressure lasting greater than 10 minutes does not resolve with rest. Orders: Nuclear stress test with myocardial perfusion; Future Assessment & Plan (12/08/2024 4:37 PM EDT): Assessment & Plan (08/19/2024 3:07 PM EST): [...] mellitus), type 2 with peripheral vascular complications 03/05/2012 Erectile dysfunction 03/05/2012 GERD (gastroesophageal reflux disease) 2 HTN (hypertension) 03/05/2012 Assessment & Plan (03/30/2025 3:03 PM EDT): Acceptable during today's exam with reading of 118/56. Continue his current medications. Educated on the importance of diet lifestyle to help further assist in reducing blood pressure. The patient was encouraged to follow low-salt low-fat diet, make purposeful strides towards weight loss, and engage in routine aerobic exercise as tolerated. Assessment & Plan (12/08/2024 4:37 PM EDT): Assessment & Plan (08/19/2024 3:07 PM EST): [...] in routine aerobic exercise as tolerated. Hyperlipidemia LDL goal <55 03/05/2012 Assessment & Plan (03/30/2025 3:03 PM EDT): Fasting lipid profile from November 2024 revealed an LDL of 20. This is at goal of less than 70 in the setting of coronary disease. Continue rosuvastatin 10 mg. Assessment & Plan (12/08/2024 4:37 PM EDT): Assessment & Plan (08/19/2024 3:07 PM EST): [...] Encounters Date Type Department Care Team Description 05/17/2025 Telephone Gastroenterology - [place] [address] [facility] [address] [facility] [address] [place] [address] Kade Francois MD 04/13/2025 Results Follow-Up [facility] - [facility] [address] [facility] [address] [place] [address] Tika Murrieta NP 04/12/2025 3:15 PM EDT Office Visit [facility] Hematology Oncology [address] [place] [phone] Bib Sharp MD Iron deficiency anemia due to chronic blood loss (Primary Dx) 04/08/2025 12:30 PM EDT Ancillary Procedure [facility] - [address] [place] [phone] Chest pain, unspecified type; Coronary artery disease involving makah coronary artery of makah heart without angina pectoris from Last 3 Months Immunizations Immunization Administration Dates Next Due Influenza Quadravalent, MDCK , 0.5ml, with preservative (Flucelvax) 6mo and older 04/17/2017 Influenza trivalent, 0.5mL ( Fluad) 65yo and older 03/12/2024,03/21/2023,03/25/2022,03/26,04/19/2020,04/02/2019 Influenza trivalent, 0.5mL ( Fluzone High-dose) 65yo and older 03/30/2025 Influenza trivalent, 0.5mL, preservative free (Fluarix; FluLaval; [...] 2 diabetes mellitus wit h diabetic cataract ([facility] V24, [facility] [place] V28) 10/05/2014 Bilateral inguinal hernia 10/13/2014 Diabetic autonomic neuropath y associated with type 2 diabetes mellitus ([facility] V24, [facility] [place] V28) 09/08/2015 History of actinic keratoses Microalbuminuria 04/15/2020 DM (diabetes mellitus), type 2 with renal complications ([facility] [place] V24, [facility] [place] V28) 04/15/2020 COVID-19 virus infection 07/26/2021 1.7.22 [...] mellitus), type 2 with peripheral vascular complications ([facility] V24, [facility] V28) 03/05/2012 Familial tremor 06/10/2012 GERD (gastroesophageal [...] Years Used Date Smoking Tobacco: Former Cigarettes 1 Q uit: 07/14/1968 Smokeless Tobacco: Never Tobacco Cessation:Counseling Given: Not Answered Alcohol Use Standard Drinks/Week Comments Yes 6 (1 standard drink = 0.6 oz pur e alcohol) weekend Housing Instability Answer Date Recorde d Are you worried that in the next 2 months you may not have stable housing? No 12/08/2024 Food Access & Nutrition Answer Date Rec orded Do you have access to a vari ety of food including fruits and vegetables? Yes 12/08/2024 Access to Healthcare Answer Date Record ed Within the last 3 months, maria teresa junior many times did you visit the emergency department for your medical care? 0 12/08/2024 Health Literacy Answer Date Recorded How often do you need to hav e someone help you when you read instructions, pamphlets, or other written material from your doctor or pharmacy? Never 12/08/2024 Caregiver: How often do you need to have someone help you when you read instructions, pamphlets, or other written material from your doctor or pharmacy? Not on file 12/08/2024 Financial Risk Answer Date Recorded How hard is it for you to pa y for the very basics like food, housing, medical care, and air conditioning / heating? Not very hard 12/08/2024 Transportation Answer Date Recorded Has the lack of transportati on kept you from meetings, work, or from getting things needed for daily living? No Has the lack of transportati on kept you from medical appointments or from getting medications? No 12/08/2024 Social Isolation Answer Date Recorded How often do you feel lonely or isolated from th ose around you? Never 12/08/2024 Food Risk Answer Date Recorded Within the past 12 months we worried whether our food would run out before we got money to buy more. Never true 12/08/2024 Within the past 12 months th e food we bought just didn't last and we didn't have money to get more. Never true 12/08/2024 Dependent Care Answer Date Recorded Do you need help finding or paying for care for your loved ones. For example, exceptional children teacher assistant or elderly care for an older adult? No 12/08/2024 Education Answer Date Recorded Do you think completing more education or training, like finishing a GED, going to college, or learning a trade, would be helpful for you? No 12/08/2024 Employment and Income Answer Date Recor ded During the last four weeks, have you been actively looking for work? No 12/08/2024 Living Situation Answer Date Recorded What is your living situation? Unrecognized valu e 12/08/2024 Interpersonal Safety Answer Date Record ed Physical Abuse Unrecognized value 09/16/2024 Verbal Abuse Unrecognized value 09/16/2024 Sex and Gender Information Value Date Recorded Sex Assigned at Male 09/15/2024 4:23 PM EST Legal Sex Male 4:05 PM EST Gender Identity Male 09/15/2024 4:23 PM EST Sexual Orientation Straight 09/16/2024 12 :21 PM EST Last Filed Vital Signs Vital Sign Reading Time Taken Comments Blood Pressure 146/70 04/12/2025 3:07 PM EDT Pulse 120 04/12/2025 3:07 PM EDT Temperature 36.3 C (97.3 F) 04/12/2025 3:07 PM EDT Respiratory Rate 16 03/29/2025 12:50 PM EDT Oxygen Saturation 97% 04/12/2025 3:07 PM EDT Inhaled Oxygen Concentration - - Weight 78.5 kg (173 lb) 04/12/2025 3:07 PM EDT Height 170.2 cm (5' 7 ) 04/08/2025 12:26 PM EDT Body Mass Index 27.1 04/08/2025 12:26 PM EDT Plan of Treatment Upcoming Encounters Date Type Department Care Team (Late st Contact Info) Description 07/27/2025 12:15 PM EST Appointment [facility] Endoscopy [address] [place] [phone] Kade Francois MD [address] [facility] [address] [place] [id number] 10/03/2025 3:20 PM EDT Office Visit Gastroenterology - [address] [facility] [address] [place] [phone] Nan Jenkins, SISSY [address] [facility] [address] [place] [address] Health Maintenance Due Date Last Done Comments Drug Screen 1955 Non-Opioid Controlled Substance Agreement 1955 Diabetes: Annual Retina Eye Exam 03/19/2025 03/19/2024, 03/19/2024 Diabetes: Annual Urine Albumin-Creatinine Ratio (uACR) 08/25/2025 08/25/2024, 08/08/2023, 08/08/2023 Diabetes: Blood Sugar Control Test (HGBA1C) 09/22/2025 03/25/2025, 12/03/2024, 08/25/2024, Additional history exists COVID-19 Vaccine ( season) 2025 03/30/2025, 03/12/2024, 10/27/2023, Additional history exists Diabetes: Annual Foot Exam 10/04/202510/04, 12/15/2023, 12/15/2023 Social Influencers of Health Screening 12/08/2025 12/08/2024 Diabetes: Annual GFR (Glomerular Filtration Rate) 03/25/2026 03/25/2025, 08/25/2024, 06/24/2024, Additional history exists Hypertension/CHF/CAD Annual BMP Blood Test 03/25/2026 03/25/2025, 08/25/2024, 06/24/2024, Additional history exists Falls Risk Assessment 06/29/2026 06/29/2025 , 12/08/2024, 09/16/2024, Additional history exists Colorectal Cancer Screening: Colonoscopy 09/17/2027 09/16/2024, 09/04/2022, 09/04/2022 Cholesterol Screening (Lipid Panel) 12/03/2029 12/03/2024, 08/25/2024, 04/15/2024, Additional history exists DTaP,Tdap,and Td Vaccines (3 - Td or Tdap) 03/25/2032 03/25/2022, 03/04/2012 Abdominal Aortic Aneurysm (AAA) Screen Completed 12/31/2018, 12/31/2018, 12/31/2018 Pneumococcal Vaccine: 50+ Years Completed 04/19/2020, 11/30/2018, 03/04/2012 Zoster Vaccines Completed 03/21/2023, 08/14, 06/08/2014 RSV Immunization Adult Patients Discontinued 10/27/2023 RSV Immunization Patients Under 20 months Aged Out 10/27/2023 No longer eligible based on patient's age to complete this topic Hepatitis C Screening Completed 06/22/2024 , 01/18/2021, 01/18/2021 Medicare Annual Wellness Visit Discontinued 12/08/2024 Influenza Vaccine Completed 03/30/2025, , 03/21/2023, Additional history exists Depression Screening Completed 06/22/2025 HIB Vaccines Aged Out No longer eligi [...] on patient's age to complete this topic Goals Goal Patient Goal Type Associated Problems Recent Progress Patient-Stated? Author Autogenerat ed Goal Care Plan Autogenerated Problem No Gregorio Iyer Procedures Procedure Name Priority Date/Time Associated Diagnosis Comments NM LEXISCAN STRESS TEST W/ MYOCARDIAL PERFUSION Routine 04/08/2025 2:31 PM EDT Chest pain, unspecified type Coronary artery disease involving makah coronary artery of makah heart without angina pectoris BASIC METABOLIC PANEL Routine 03/25/2025 12:53 PM EDT Primary hypertension HEMOGLOBIN A1C Routine 03/25/2025 12:53 PM EDT Type 2 diabetes mellitus with chronic kidney disease, without long-term current use of insulin, unspecified CKD stage ([facility] V24, [facility] V28) LIPID PANEL WITH REFLEX TO DIRECT LDL Routine 12/03/2024 2:16 PM EDT Other hyperlipidemia COLONOSCOPY Routine 09/16/2024 2:55 PM EST Iron deficiency anemia, unspecified iron deficiency anemia type MICROALBUMIN CREATININE URINE RATIO Routine 08/25/2024 1:58 PM EST Type 2 diabetes mellitus with diabetic microalbuminuria, without long-term current use of insulin ([facility] V24, [facility] V28) HEPATITIS C ANTIBODY Add-On 06/22/2024 1:16 PM EST DIABETES EYE EXAM Routine 03/19/2024 DIABETES FOOT EXAM Routine 12/15/2023 FALLS RISK ASSESSMENT Routine 08/18/2023 ABDOMINAL AORTIC ANEURYSM SCRREN Routine 12/31/2018 from Last 3 Months or Most Recently Relevant to Health Maintenance Results * NM LEXISCAN STRESS TEST W/ MYOCARDIAL PERFUSION (04/08/2025 2:31 PM EDT) Exercise/injec tion duration (min) 0 CV PACS STRESS Exercise/injec tion duration (sec) 38 CV PACS STRESS Peak SBP 120 mmHg CV PACS STRESS Peak DBP 60 mmHg CV PACS STRESS Peak HR 127 bpm CV PACS STRESS Baseline HR 114 bpm CV PACS STRESS Baseline SBP 112 mmHg CV PACS STRESS Baseline DBP 65 mmHg CV PACS STRESS Estimated workload 1.0 METS CV PACS STRESS Percent HR 85 % CV PACS STRESS Rate Pressure Product 15,240.0 mmHg*bpm CV PACS STRESS Target HR 127 bpm CV PACS STRESS TID 1.28 CV PACS STRESS Nuc Stress EF 80 % CV PAC S STRESS Nuc Rest EF 84 % CV PACS STRESS BSA 1.94 m2 CV PACS STRESS Anatomical Region Laterality Modality Nuclear Medicine 04/08/2025 1:05 PM EDT 04/08/2025 2:03 PM EDT Narrative 04/08/2025 6:53 PM EDT Raw Images and CineLoop Images: Impression: 1. Probably abnormal stress test with nuclear imaging. 2. The patient had no chest pain during the test. 3. EKG at baseline was sinus tachycardia with right bundle branch block, no ischemic EKG changes at stress. 4. LV Cavity size is normal. 5. No transient ischemic dialatation (TID 1.28) 6, CT scan showed severe calcification of the LAD, LCx and RCA noted. 7. Raw perfusion imgaes revelaed moderate in size, moderate intensity hypoperfusion of the basal to mid inferior wall both at rest and stress. When attenuation correction is applied, there is mild hypoperfusion noted in the inferior wall at rest which intensifies further in the stress images indicating prior basal infarct/scar with lidia-infarct ischemia. 8. Gated SPECT imaging was performed which demonstrated normal LV wall motion and thickening except for the basal inferior wall. The basal inferior wall could not be visualized well on the gated SPECT images. The LVEF of 84% at rest and 80% at stress. Stress Findings A pharmacological stress test was performed using regadenoson, 0.4 mg IV over 10-15 seconds, followed by radiopharmacological injection 10 seconds post infusion. Total stress time was 0 min and 38 sec. The patient reached the end of the protocol. Blood pressure demonstrated a normal response. Heart rate demonstrated a normal response. The patient reported abdominal discomfort during the stress test that resolved in recovery. ECG 69 year old male with PMH of CAD, DM, HTN, HLD and former smoking with episode of chest pain. Of note, the patients baseline HR is noted to be around 106-110 bpm prior to the test. He states he did not take his propranolol today and he took his albuterol inhaler prior to coming in. I asked him to monitor his HR at home and call the office if it continues to be elevated at or above 100 bpm . He agrees with the plan. The ECG shows sinus tachycardia. Baseline ECG indicates incomplete right bundle branch block and right bundle branch block. Arrhythmias during stress: rare premature ventricular contractions (PVCs) . There is no significant ST abnormalities during stress in the setting of baseline abnormal ECG. Arrhythmias during recovery: rare premature ventricular contractions (PVCs). Nuclear Study Quality Study technique: MPI, SPECT, multi, rest and stress, 1 day and gated. Overall image quality is good. CT attenuation correction was utilized. Stress Function Comments Stress ejection fraction is 80%. Rest Function Comments Resting ejection fraction was 84%. us Tika Murrieta NP CV STRESS PROCEDURES F inal Result * (ABNORMAL) Hemoglobin A1c (03/25/2025 12:53 PM EDT) [facility] Hemoglobin A1C 7.8(H) <6.5 % LAB CHEMISTRY METHOD 03/25/2025 8:51 PM EDT [facility] Mean Bld Glu Estim. 177 mg/dL LAB CHEMISTRY METHOD 03/25/2025 8:51 PM EDT [facility] Blood Venous blood specimen / Unknown Venipuncture / Unknown 03/25/2025 12:53 PM EDT 03/25/2025 12:53 PM EDT Rivka Nguyen MD LAB BLOOD ORDERABLES Final Resul t [facility] [address] [place] [address], [place] [phone] * (ABNORMAL) Basic metabolic panel (03/25/2025 12:53 PM EDT) [facility] Sodium 140 133 - 145 mmol/L LAB CHEMISTRY METHOD 03/25/2025 5:21 PM EDT [facility] Potassium 4.4 3.5 - 5.5 mmol/L LAB CHEMISTRY METHOD 03/25/2025 5:21 PM EDT [facility] Chloride 102 96 - 110 mmol/L LAB CHEMISTRY METHOD 03/25/2025 5:21 PM EDT [facility] CO2 30 21 - 32 mmol/L LAB CHEMISTRY METHOD 03/25/2025 5:21 PM [facility] Anion Gap 8 3 - 11 LAB CHEMISTRY METHOD 03/25/2025 5:21 PM [facility] Glucose 126(H) 70 - 100 mg/dL LAB CHEMISTRY METHOD 03/25/2025 5:21 PM [facility] BUN 20 5 - 25 mg/dL LAB CHEMISTRY METHOD 03/25/2025 5:21 PM [facility] Creatinine 0.97 0.70 - 1.30 mg/dL LAB CHEMISTRY METHOD 03/25/2025 5:21 PM [facility] eGFR 83 >=60 mL/min/1. 73m2 LAB CHEMISTRY METHOD 03/25/2025 5:21 PM [facility] Comment:Calculation based on the Chronic Kidney Disease Epidemiology Collaboration (CKD-EPI) equation refit without adjustment for race. BUN/Creatinine Ratio 20.6 LAB CHEMISTRY METHOD 03/25/2025 5:21 PM [facility] Calcium 8.9 8.5 - 10.5 mg/dL LAB CHEMISTRY METHOD 03/25/2025 5:21 PM [facility] Blood Venous blood specimen / Unknown Venipuncture / Unknown 03/25/2025 12:53 PM EDT 03/25/2025 12:53 PM EDT us Rivka Nguyen MD LAB BLOOD ORDERABLES Final Resul t [facility] [address] [place] [address], * (ABNORMAL) Lipid panel with reflex to direct LDL (12/03/2024 2:16 PM EDT) Cholesterol 112 0 - 200 mg/dL LAB CHEMISTRY METHOD 12/03/2024 6:56 PM EDT [facility] Triglycerides 212(H) 0 - 150 mg/dL LAB CHEMISTRY METHOD 12/03/2024 6:56 PM EDT [facility] HDL 50 >=40 mg/dL LAB CHEMISTRY METHOD 12/03/2024 6:56 PM EDT [facility] LDL Calculated 20 0 - 100 mg/dL LAB CHEMISTRY METHOD 12/03/2024 6:56 PM EDT [facility] VLDL Cholesterol Missael 42.4 mg/dL LAB CHEMISTRY METHOD 12/03/2024 6:56 PM EDT [facility] Non HDL Chol. (LDL+VLDL) 62 <145 mg/dL LAB CHEMISTRY METHOD 12/03/2024 6:56 PM EDT [facility] Chol/HDL Ratio 2.2 0.0 - 4.4 LAB CHEMISTRY METHOD 12/03/2024 6:56 PM EDT [facility] Blood Venous blood specimen / Unknown Venipuncture / Unknown 12/03/2024 2:16 PM EDT 12/03/2024 2:16 PM EDT Kym HEALY LAB BLOOD ORDERABLES Final Re sult [facility] [address] [place] [address], * COLONOSCOPY Anesthesia - [facility]; [facility] ENDOSCOPY (09/16/2024 2:55 PM EST) Anatomical Region Laterality Modality Endoscopy 09/16/2024 2:30 PM EST Impressions 09/16/2024 2:59 PM EST - Preparation of the colon was poor. - Stool in the entire examined colon. - No specimens collected. Recommendation: - Patient has a contact number available for emergencies. The signs and symptoms of potential delayed complications were discussed with the patient. Return to normal activities tomorrow. Written discharge instructions were provided to the patient. - Resume previous diet. - Continue present medications. - Await pathology results. - Repeat colonoscopy at the next available appointment because the bowel preparation was suboptimal. Narrative 09/16/2024 2:59 PM [facility] GI Patient Name: Fabiana Moreno Procedure Date: 09/16/2024 2:30 PM Date of : 1955 Age: 69 Gender: Male Note Status: Finalized Attending MD: Kade Francois MD, Procedure Date No Time: 09/16/2024 Procedure: Colonoscopy Indications: Unexplained iron deficiency anemia Providers: Kade Francois MD Referring MD: Kade Francois MD Medicines: Monitored Anesthesia Care Complications: No immediate complications. Estimated blood loss: None. Estimated Blood Loss: Estimated blood loss: none. Procedure: Pre-Anesthesia Assessment: - Prior to the procedure, a History and Physical was performed, and patient medications and allergies were reviewed. The patient is competent. The risks and benefits of the procedure and the sedation options and risks were discussed with the patient. All questions were answered and informed consent was obtained. Patient identification and proposed procedure were verified by the physician, the nurse, the stereotype molder and the laundry technician in the pre-procedure area in the endoscopy suite. Mental Status Examination: alert and oriented. Airway Examination: normal oropharyngeal airway and neck mobility. Respiratory Examination: clear to auscultation. CV Examination: normal. Prophylactic Antibiotics: The patient does not require prophylactic antibiotics. Prior Anticoagulants: The patient has taken no anticoagulant or antiplatelet agents. ASA Grade Assessment: III - A patient with severe systemic disease. After reviewing the risks and benefits, the patient was deemed in satisfactory condition to undergo the procedure. The anesthesia plan was to use monitored anesthesia care (MAC). Immediately prior to administration of medications, the patient was re-assessed for adequacy to receive sedatives. The heart rate, respiratory rate, oxygen saturations, blood pressure, adequacy of pulmonary ventilation, and response to care were monitored throughout the procedure. The physical status of the patient was re-assessed after the procedure. After I obtained informed consent, the scope was passed under direct vision. Throughout the procedure, the patient's blood pressure, pulse, and oxygen saturations were monitored continuously.The Colonoscope was introduced through the anus with the intention of advancing to the cecum. The scope was advanced to the ascending colon before the procedure was aborted. Medications were given. The colonoscopy was performed without difficulty. The patient tolerated the procedure well. The quality of the bowel preparation was poor. Findings: The perianal and digital rectal examinations were normal. Copious quantities of semi-liquid semi-solid stool was found in the entire colon, precluding visualization. Procedure Code(s): --- Professional --- 65914, 53, Colonoscopy, flexible; diagnostic, including collection of specimen(s) by brushing or washing, when performed (separate procedure) Diagnosis Code(s): --- Professional --- D50.9, Iron deficiency anemia, unspecified CPT copyright 2020 [employer]. All rights reserved. The codes documented in this report are preliminary and upon adoption social worker review may be revised to meet current compliance requirements. Kade Francois MD 09/16/2024 2:59:30 PM This report has been signed electronically.Kade Francois MD Number of Addenda: 0 Note Initiated On: 09/16/2024 2:30 PM Scope In: 2:34:28 PM Scope Out: 2:39:46 PM Endoscopy Department at [facility] - [address] [place] [phone] Procedure Note Kade Francois MD - 09/16/2024 [facility] GI Patient Name: Fabiana Moreno Procedure Date: 09/16/2024 2:30 PM Date of [...] the physician, the nurse, theanesthetist and the laundry technician in the pre-procedure area in the [...] colon, precludingvisualization. Procedure Code(s): --- Professional --- 36835, 53, Colonoscopy, flexible; diagnostic, including collection of specimen(s) by brushing or washing, when performed (separate procedure) Diagnosis Code(s): --- Professional --- D50.9, Iron deficiency anemia, unspecified CPT copyright 2020 [employer]. All rights reserved. The codes documented in this report are preliminary and upon adoption social worker reviewmay be revised to meet current compliance requirements. Kade Francois MD 09/16/2024 2:59:30 PM This report has been signed electronically.Kade Francois MD Number of Addenda: 0 Note Initiated On: 09/16/2024 2:30 PM Scope In: 2:34:28 PM Scope Out: 2:39:46 PM Endoscopy Department at [facility] - [address] [place] [phone] IMPRESSION: - Preparation of the colon was [...] availableappointment because the bowel preparation was suboptimal. us Kade Francois MD GI~PROCEDURE ORDERABLES Fin al Result * Microalbumin creatinine urine ratio (08/25/2024 1:58 PM EST) Pathologist [facility] Creatinine, Urine 22.0 mg/dL LAB CHEMISTRY METHOD 08/25/2024 5:10 PM EST [facility] Microalb, Ur 5.4 0.0 - 29.0 mg/L LAB CHEMISTRY METHOD 08/25/2024 5:10 PM EST [facility] Microalb/Creat Ratio 25 <30 mg/g creat LAB CHEMISTRY METHOD 08/25/2024 5:10 PM EST [facility] Urine Urine specimen from urethra / Unknown Non-blood Collection / Unknown 08/25/2024 1:58 PM EST 08/25/2024 1:58 PM EST us Kym [facility]AL[facility] LAB URINE ORDERABLES Final Re sult [facility] [address] [place] [address], [place] [phone] * Hepatitis C antibody (06/22/2024 1:16 PM EST) Pathologist [facility] Hepatitis C Antibody Negative Negative LAB CHEMISTRY METHOD 06/22/2024 2:43 PM EST [facility] Blood Venous blood specimen / Unknown Venipuncture / Unknown 06/22/2024 1:16 PM EST 06/22/2024 1:21 PM EST Gayla Pinto MD LAB BLOOD ORDERABLES Final Resul t [facility] [address] [place] [address], [place] [phone] * Diabetes Eye Exam (03/19/2024) Diabetes: Annual Retina Eye Exam abstracted Historical Provider HEALTH MAINTENANCE Final Result * Diabetes Foot Exam (12/15/2023) Pathologist [facility] Diabetes: Annual Foot Exam abstracted Historical Provider HEALTH MAINTENANCE Final Result * Falls Risk Assessment (08/18/2023) Pathologist [facility] Falls Risk Assessment abstracted Historical Provider HEALTH MAINTENANCE Final Result * Abdominal Aortic Aneurysm Screen (12/31/2018) Pathologist [facility] Abdominal Aortic Aneurysm (AAA) Screening abstracted Anatomical Region Laterality Modality Other Historical Provider HEALTH MAINTENANCE Final Result from Last 3 Months or Most Recently Relevant to Health Maintenance Additional Health Concerns Active Problems Noted Date Diagnosed Date Autogenerated Problem 06/03/2025 Insurance [place]ICA[place] - [place] [facility] [id number] Advance Directives * Full Code - Default [...] currently active code status orders. Care Teams [employer] Relationship Specialty Start Date End Date Rivka Nguyen MD [address] [place] [address] PCP - General Internal Medicine 01/05/15
--- NOTE | 2025-07-08 10:04 | AM.OFFWIN_ITS ---
Intake Vital Signs 07/08/25 10:06 Height 5 ft 6 in Weight 161 lb BMI 26.0 BP 160/80 H Blood Pressure Location Rt brachial Position Sitting Respiration 20 Pulse 100 Pulse Source Pulse Oximeter Temp 98.8 F Temp Source Oral Pulse Oximetry (%) 96 Oxygen Delivery Method Room Air Intake Visit Reasons: EP Cough, phlegm Intake Note: EP complains of cough (productive - yellow and almost brown), chest and nasal congestion for the last two weeks. Patient Tobacco Use Status: Former Tobacco user Allergies No Known Allergies Allergy (Verified 07/08/25 10:17) Do you need a note to return to daycare/school/sports/work: No HPI HPI Comments History of Present Illness Details History - The patient is a 70-year-old male pres enting with a cough that started 3 weeks ago. - Initially, he was coughing up greenish phlegm, but now he only has a cough. - He reports that his symptoms are impro ving. - The patient had a fever on the first n ight of his illness but has had no fevers since. - He had some raspiness in his breathing , but this has resolved. - He denies any shortness of breath, whe ezing, sinus pain, ear pain, head congestion, or fatigue. - He has a history of asthma and was pre scribed an albuterol inhaler last week, which he reports has been helpful. - He had a prior COVID-19 infection but tested negative for flu, COVID, and RSV during this illness. - Has not taken any OTC meds [facility] History Cough Acute respiratory disease Social History Patient Tobacco Use Status: Former Tobacco user Review of Systems Narrative Review of Systems - Constitutional: Reports a fever on the first night of symptoms, denies recent fever or fatigue. - Respiratory: Reports a cough for two weeks, initially productive with greenish phlegm, which is now improving. Denies shortness of breath and wheezing. - ENT: Denies sinus pain, ear pain, or head congestion. All systems reviewed and are unremarkable except as noted in HPI Physical Exam Exam Exam: Physical Exam General: Cooperative, healthy appearing, comfortable and no acute distress Orientation/consciousness: Patient oriented x3 Limitations: No limitations Head: Normal to inspection Ears: Fluid present in ears Nose: Normal external nose present, Normal nares present and No nasal discharge present Face and sinus: Normal facial exam and sinuses nontender Mouth: Normal oral and palatal mucosa present and moist mucous membranes Throat: tonsils normal, no exudates, uvula midline, posterior oropharynx erythema Eyes: Appearance normal, both eyes and all related structures Neck: Normal visual inspection, full ROM Respiratory: upper right dim and slight rhonchi. Normal respiratory effort, able to speak in complete sentences, not actively coughing, no respiratory distress, not tachypneic, no tripod positioning and no use of accessory muscles Cardiovascular: Regular rate and rhythm. Normal S1 and S2 Skin: No rashes or lesions noted Neuro: Patient oriented x3 Extremities: Normal to inspection and Yes no clubbing, cyanosis or edema Vital Signs: Last Vital Signs Temp 98.8 F 07/08/25 10:06 Pulse 100 07/08/25 10:06 Resp 20 07/08/25 10:06 BP 160/80 H 07/08/25 10:06 Pulse Ox 96 07/08/25 10:06 Oxygen Delivery Method Room Air 07/08/25 10:06 BMI result Body Mass Index 26.0 Assessment & Plan Assessment & Plan (1) Cough: Code(s): R05.9 - Cough, unspecified Qualifiers: Cough type: acute Qualified Code(s): R05.1 - Acute cough Plan: Patient was informed and verbally consented to the use of an ambient scribe for clinic note documentation during this visit. - VSS, pt well appearing and PE remarkable for RUL dim and slight rhonchi. - The patient presents with a cough which has been present for a couple of weeks, though it is improving, raising suspicion for acute bronchitis. - Due to the duration of the cough and abnormal findings on lung auscultation, a chest X-ray will be ordered to rule out pneumonia. - A cough suppressant will be prescribed for nighttime use to help with sleep. - The patient will be contacted with the chest X-ray results and to discuss any further treatment. - The patient has a history of asthma and reports that his recently prescribed albuterol inhaler has been effective. He is advised to continue using his albuterol inhaler as needed. Orders: Orders XR chest 2V Today R05.9 - Cough, unspecified Medications: New benzonatate DO NOT ALLOW CHILDREN TO HAVE ACCESS TO THIS MEDICATION IT IS DANGEROUS FOR CHILDREN. 200 mg PO BEDTIME PRN 10 caps 0RF cough Coding Level of Care Code New Pt Level 4 (21528) Diagnoses Acute cough R05.1 Cough type: acute
[2025-07-08 10:06] VITALS: BP 160/80; PULSE 100; RESP 20; TEMP 37.1; O2SAT 96; BMI 26.0
== END 2025-07-08 10:38 | disposition home or self-care (01) ==
PROVIDERS: PCP Internal Medicine; Visit Provider Physician Assistant
DX: R05.1 Acute cough (principal)

== ENCOUNTER 2025-07-08 09:27 | Outpatient (REF) | payer MEDICARE, MEDICAID, SELFPAY ==
--- NOTE | ~2025-07-08 | XR_ITS ---
EXAMINATION: XR CHEST 2 VIEWS HISTORY: R05.9 - Cough, unspecified COMPARISON: There are no prior studies available for comparison. FINDINGS: PA and lateral views of the chest are submitted. There are mild increased markings bilaterally. No focal airspace opacity is seen. There is no pleural effusion, pneumothorax, or pulmonary vascular congestion. The heart is normal in size. The aorta is tortuous. There is degenerative disc disease of the spine. XR/XR chest 2V IMPRESSION: No focal airspace opacity is identified. Electronically signed by: Phil Bird MD 07/08/2025 10:50 AM MAR[facility]
== END 2025-07-08 09:28 | disposition home or self-care (01) ==
LOC: HO.HMGCX 09:27
PROVIDERS: PCP Internal Medicine; Visit Provider Physician Assistant
DX: R05.1 Acute cough (principal); J45.909 Unspecified asthma, uncomplicated; Z79.899 Other long term (current) drug therapy
CPT/HCPCS: 71046; 99202

== ENCOUNTER → 2025-07-08 10:40 | Outpatient (BNV) | payer MEDICARE, MEDICAID, SELFPAY | PROVIDERS: PCP Internal Medicine; Visit Provider Radiology Diagnostic Radiology | DX: R05.9 Cough, unspecified (principal) | CPT/HCPCS: 71046 ==